=== PATIENT | male | born 2000 | race Caucasian/White ===

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

== ENCOUNTER 2021-05-25 16:05 | Emergency (ER) | payer BC, OTHER ==
[2021-05-25 16:35] LABS: Glucose,Whole Blood >600 mg/dL (75-99)
[2021-05-25 17:05] LABS: Glucose,Whole Blood >600 mg/dL (75-99)
[2021-05-25] MEDS ORDERED: SODIUM CHLORIDE 0.9% 2,000 ML IV STA (17:08)
[2021-05-25] MEDS ORDERED: ONDANSETRON 4 MG/2 ML VIAL IVP STA (17:10)
[2021-05-25 17:31] LABS: Appearance,Urine Clear (Clear); Bilirubin,Urine Negative (Negative); Blood,Urine Negative (Negative); Color,Urine Colorless; Glucose,Urine (UA) 4+ (Negative); Ketones,Urine Negative (Negative); Leukocyte Esterase,Urine Negative (Negative); Nitrite,Urine Negative (Negative); Protein,Urine Negative (Negative); Urobilinogen,Urine <2.0 mg/dL (<2.0)
[2021-05-25 17:42] LABS: ALT 12 U/L (4-49); AST 17 U/L (17-59); African American GFR (CKD) >90 (>60 ml/min/1.73 sqM); Albumin 4.1 g/dL (3.5-5.0); Alkaline Phosphatase 154 U/L (38-126); Anion Gap 9 mmol/L; Blood Urea Nitrogen 13 mg/dL (9-20); Calcium 9.5 mg/dL (8.4-10.2); Carbon Dioxide 26 mmol/L (22-30); Chloride 96 mmol/L (98-107); Non-African American GFR(CKD) >90 (>60 ml/min/1.73 sqM); Potassium 4.4 mmol/L (3.5-5.1); Sodium 131 mmol/L (137-145); Total Bilirubin 0.7 mg/dL (0.2-1.3); Total Protein 6.6 g/dL (6.3-8.2)
[2021-05-25 17:45] LABS: Basophils # (A) 0.1 k/uL (0-0.2); Basophils % (A) 1 %; Eosinophils % (A) 1 %; HCT 45.1 % (39.0-53.0); HGB 15.9 gm/dL (13.0-17.5); Lymphocytes # (A) 2.2 k/uL (1.0-4.8); Lymphocytes % (A) 27 %; MCH 32.7 pg (25.0-35.0); MCHC 35.3 g/dL (31.0-37.0); MCV 92.6 fL (80.0-100.0); Mean Platelet Volume 8.7; Monocytes # (A) 0.4 k/uL (0-1.0); Monocytes % (A) 5 %; Neutrophils # (A) 5.3 k/uL (1.3-7.7); Neutrophils % (A) 66 %; Platelet Count 247 k/uL (150-450); RBC 4.86 m/uL (4.30-5.90); RDW 12.2 % (11.5-15.5)
[2021-05-25 17:52] LABS: Glucose 684 mg/dL (74-99)
[2021-05-25] MEDS ORDERED: ACETAMINOPHEN TAB 500 MG TAB PO STA (18:38)
[2021-05-25 18:39] LABS: Glucose,Whole Blood 418 mg/dL (75-99)
[2021-05-25 19:33] LABS: Glucose,Whole Blood 404 mg/dL (75-99)
[2021-05-25] MEDS ORDERED: INSULIN REGULAR 100 UNIT/ML VIAL (IM/SQ) SQ ONE (19:34)
[2021-05-25] MEDS ORDERED: INSULIN REGULAR 100 UNIT/ML VIAL (IV) SQ ONE (20:00)
--- NOTE | 2021-05-25 21:12 | ED ---
General Adult HPI - General Chief complaint: Nausea/Vomiting/Diarrhea Stated complaint: not feeling well/dizzy/nausea Time Seen by Provider: 05/25/21 16:30 Source: patient Mode of arrival: ambulatory Limitations: no limitations - History of Present Illness Initial comments: 20-year-old male with history of type 1 diabetes presents [facility] the [facility] with complaints of nausea and elevated blood sugar, onset this morning. States additional symptom includes feeling slightly dizzy and knew that his blood sugar was elevated. Expresses concern about DKA, but states he doesn't think he is that sick. 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 Denies use of an insulin pump. Current medication regimen includes administering bolus insulin via sliding scale. Denies fever, chills, headache, chest pain, shortness of breath, vomiting and diarrhea. - Related Data Home Medications Medication Instructions Recorded Confirmed Insulin Detemir [Levemir Flextouch 30 units SQ HS 05/25/21 05/25/21 Pen] Insulin Lispro [Insulin Lispro See Protocol SQ AC-TID 05/25/21 05/25/21 Kwikpen U-100] Allergies Allergy/AdvReac Type Severity Reaction Status Date / Time No Known Allergies Allergy Verified 05/25/21 17:13 Review of Systems ROS Statement: Those systems with pertinent positive or pertinent negative responses have been documented in the HPI. ROS Other: All systems not noted in ROS Statement are negative. Past Medical History Past Medical History: Diabetes Mellitus, Hypertension Additional Past Medical History / Comment(s): type 1 DM DKI in the past History of Any Multi-Drug Resistant Organisms: None Reported Past Surgical History: Adenoidectomy, Tonsillectomy Past Anesthesia/Blood Transfusion Reactions: No Reported Reaction Past Psychological History: Anxiety, Depression Smoking Status: Vaper Past Alcohol Use History: None Reported Past Drug Use History: Marijuana - Past Family History Mother Family Medical History: Diabetes Mellitus Additional Family Medical History / Comment(s): bipolar Father Family Medical History: Diabetes Mellitus, Hypertension General Exam Limitations: no limitations General appearance: alert, in no apparent distress ENT exam: Present: normal exam, normal oropharynx, mucous membranes moist Respiratory exam: Present: normal lung sounds bilaterally. Absent: respiratory distress, wheezes, rales, rhonchi, stridor Cardiovascular Exam: Present: regular rate, normal rhythm, normal heart sounds. Absent: systolic murmur, diastolic murmur, rubs, gallop, clicks GI/Abdominal exam: Present: soft, normal bowel sounds. Absent: distended, tenderness, guarding, rebound, rigid Neurological exam: Present: alert, oriented X3, CN II-XII intact Psychiatric exam: Present: normal affect, normal mood Skin exam: Present: warm, dry, intact, normal color. Absent: rash Course Vital Signs 05/25/21 05/25/21 05/25/21 16:22 17:24 18:26 Temperature 98.5 F Pulse Rate 107 H 94 93 Respiratory 19 16 18 Rate Blood Pressure 155/94 120/94 132/96 O2 Sat by Pulse 98 98 100 Oximetry 05/25/21 05/25/21 05/25/21 19:00 20:33 21:45 Temperature 98.4 F 98 F Pulse Rate 104 H 87 87 Respiratory 17 18 16 Rate Blood Pressure 134/92 131/83 128/80 O2 Sat by Pulse 99 100 98 Oximetry 05/25/21 23:46 Temperature 97.8 F Pulse Rate 92 Respiratory 18 Rate Blood Pressure 120/70 O2 Sat by Pulse 99 Oximetry - Reevaluation(s) Reevaluation #1: 05/25/21 21:34 Repeat Accu-Chek after receiving 10 units of subcutaneous insulin is 456. Patient did eat a meal therefore additional insulin will be administered and Accu-Chek will be repeated. 05/25/21 22:08 Resting comfortably with no complaints. Updated on treatment goal and plan of care; patient is agreeable. Also discussed importance of close monitoring and follow-up care for management of chronic illness. Medical Decision Making - Medical Decision Making 20-year-old male with a history of type 1 diabetes presents to the emergency room for evaluation of nausea and hyperglycemia. Physical exam findings are negative. Pertinent lab findings include a blood glucose of 684, anion gap is 9, serum acetone is negative. Patient was hydrated and blood glucose improved to 400. Patient was then given 10 units of subcutaneous insulin with a repeat Accu-Chek of 456. Patient was eating a meal therefore was given a repeat dose of subcutaneous insulin; repeat Accu-Chek 249. Patient reports feeling improved. Discussed importance of follow-up care for management of chronic medical condition. Return parameters were discussed in detail. Patient verbalizes understanding and agrees with this plan. This case was discussed with my attending Dr. Rubio. - Lab Data Result diagrams: 05/25/21 17:17 05/25/21 17:17 Lab Results 05/25/21 05/25/21 05/25/21 Range/Units 16:25 17:03 17:17 WBC 8.0 (4.0-11.0) k/uL RBC 4.86 (4.30-5.90) m/uL Hgb 15.9 (13.0-17.5) gm/dL Hct 45.1 (39.0-53.0) % MCV 92.6 (80.0-100.0) fL MCH 32.7 (25.0-35.0) pg MCHC 35.3 (31.0-37.0) g/dL RDW 12.2 (11.5-15.5) % Plt Count 247 (150-450) k/uL MPV 8.7 Neutrophils % 66 % Lymphocytes % 27 % Monocytes % 5 % Eosinophils % 1 % Basophils % 1 % Neutrophils # 5.3 (1.3-7.7) k/uL Lymphocytes # 2.2 (1.0-4.8) k/uL Monocytes # 0.4 (0-1.0) k/uL Eosinophils # 0.0 (0-0.7) k/uL Basophils # 0.1 (0-0.2) k/uL Sodium (137-145) mmol/L Potassium (3.5-5.1) mmol/L Chloride (98-107) mmol/L Carbon Dioxide (22-30) mmol/L Anion Gap mmol/L BUN (9-20) mg/dL Creatinine (0.66-1.25) mg/dL Est GFR (CKD-EPI)AfAm (>60 ml/min/1.73 sqM) Est GFR (CKD-EPI)NonAf (>60 ml/min/1.73 sqM) Glucose (74-99) mg/dL POC Glucose (mg/dL) >600 H >600 H (75-99) mg/dL POC Glu Licensed Optician ID Hannah Maradiaga Muranda Plasma Lactic Acid Kw[place] (0.7-2.0) mmol/L Calcium (8.4-10.2) mg/dL Magnesium (1.6-2.3) mg/dL Total Bilirubin (0.2-1.3) mg/dL AST (17-59) U/L ALT (4-49) U/L Alkaline Phosphatase (38-126) U/L Total Protein (6.3-8.2) g/dL Albumin (3.5-5.0) g/dL Urine Color Urine Appearance (Clear) Urine pH (5.0-8.0) Ur Specific [place] (1.001-1.035) Urine Protein (Negative) Urine Glucose (UA) (Negative) Urine Ketones (Negative) Urine Blood (Negative) Urine Nitrite (Negative) Urine Bilirubin (Negative) Urine Urobilinogen (<2.0) mg/dL Ur Leukocyte Esterase (Negative) Acetone, Qual (Negative) 05/25/21 05/25/21 05/25/21 Range/Units 17:17 17:17 17:17 WBC (4.0-11.0) k/uL RBC (4.30-5.90) m/uL Hgb (13.0-17.5) gm/dL Hct (39.0-53.0) % MCV (80.0-100.0) fL MCH (25.0-35.0) pg MCHC (31.0-37.0) g/dL RDW (11.5-15.5) % Plt Count (150-450) k/uL MPV Neutrophils % % Lymphocytes % % Monocytes % % Eosinophils % % Basophils % % Neutrophils # (1.3-7.7) k/uL Lymphocytes # (1.0-4.8) k/uL Monocytes # (0-1.0) k/uL Eosinophils # (0-0.7) k/uL Basophils # (0-0.2) k/uL Sodium 131 L (137-145) mmol/L Potassium 4.4 (3.5-5.1) mmol/L Chloride 96 L (98-107) mmol/L Carbon Dioxide 26 (22-30) mmol/L Anion Gap 9 mmol/L BUN 13 (9-20) mg/dL Creatinine 0.35 L (0.66-1.25) mg/dL Est GFR (CKD-EPI)AfAm >90 (>60 ml/min/1.73 sqM) Est GFR (CKD-EPI)NonAf >90 (>60 ml/min/1.73 sqM) Glucose 684 H* (74-99) mg/dL POC Glucose (mg/dL) (75-99) mg/dL POC Glu Licensed Optician ID Plasma Lactic Acid Kw[place] 1.4 (0.7-2.0) mmol/L Calcium 9.5 (8.4-10.2) mg/dL Magnesium 2.0 (1.6-2.3) mg/dL Total Bilirubin 0.7 (0.2-1.3) mg/dL AST 17 (17-59) U/L ALT 12 (4-49) U/L Alkaline Phosphatase 154 H (38-126) U/L Total Protein 6.6 (6.3-8.2) g/dL Albumin 4.1 (3.5-5.0) g/dL Urine Color Colorless Urine Appearance Clear (Clear) Urine pH 7.0 (5.0-8.0) Ur Specific [place] 1.030 (1.001-1.035) Urine Protein Negative (Negative) Urine Glucose (UA) 4+ H (Negative) Urine Ketones Negative (Negative) Urine Blood Negative (Negative) Urine Nitrite Negative (Negative) Urine Bilirubin Negative (Negative) Urine Urobilinogen <2.0 (<2.0) mg/dL Ur Leukocyte Esterase Negative (Negative) Acetone, Qual Negative (Negative) 05/25/21 05/25/21 05/25/21 Range/Units 18:35 19:30 21:24 WBC (4.0-11.0) k/uL RBC (4.30-5.90) m/uL Hgb (13.0-17.5) gm/dL Hct (39.0-53.0) % MCV (80.0-100.0) fL MCH (25.0-35.0) pg MCHC (31.0-37.0) g/dL RDW (11.5-15.5) % Plt Count (150-450) k/uL MPV Neutrophils % % Lymphocytes % % Monocytes % % Eosinophils % % Basophils % % Neutrophils # (1.3-7.7) k/uL Lymphocytes # (1.0-4.8) k/uL Monocytes # (0-1.0) k/uL Eosinophils # (0-0.7) k/uL Basophils # (0-0.2) k/uL Sodium (137-145) mmol/L Potassium (3.5-5.1) mmol/L Chloride (98-107) mmol/L Carbon Dioxide (22-30) mmol/L Anion Gap mmol/L BUN (9-20) mg/dL Creatinine (0.66-1.25) mg/dL Est GFR (CKD-EPI)AfAm (>60 ml/min/1.73 sqM) Est GFR (CKD-EPI)NonAf (>60 ml/min/1.73 sqM) Glucose (74-99) mg/dL POC Glucose (mg/dL) 418 H 404 H 456 H (75-99) mg/dL POC Glu Licensed Optician Mahamed Llamasjennifer Paula [place] Muranda Plasma Lactic Acid [place] (0.7-2.0) mmol/L Calcium (8.4-10.2) mg/dL Magnesium (1.6-2.3) mg/dL Total Bilirubin (0.2-1.3) mg/dL AST (17-59) U/L ALT (4-49) U/L Alkaline Phosphatase (38-126) U/L Total Protein (6.3-8.2) g/dL Albumin (3.5-5.0) g/dL Urine Color Urine Appearance (Clear) Urine pH (5.0-8.0) Ur Specific [place] (1.001-1.035) Urine Protein (Negative) Urine Glucose (UA) (Negative) Urine Ketones (Negative) Urine Blood (Negative) Urine Nitrite (Negative) Urine Bilirubin (Negative) Urine Urobilinogen (<2.0) mg/dL Ur Leukocyte Esterase (Negative) Acetone, Qual (Negative) 05/25/21 05/25/21 Range/Units 22:51 23:23 WBC (4.0-11.0) k/uL RBC (4.30-5.90) m/uL Hgb (13.0-17.5) gm/dL Hct (39.0-53.0) % MCV (80.0-100.0) fL MCH (25.0-35.0) pg MCHC (31.0-37.0) g/dL RDW (11.5-15.5) % Plt Count (150-450) k/uL MPV Neutrophils % % Lymphocytes % % Monocytes % % Eosinophils % % Basophils % % Neutrophils # (1.3-7.7) k/uL Lymphocytes # (1.0-4.8) k/uL Monocytes # (0-1.0) k/uL Eosinophils # (0-0.7) k/uL Basophils # (0-0.2) k/uL Sodium (137-145) mmol/L Potassium (3.5-5.1) mmol/L Chloride (98-107) mmol/L Carbon Dioxide (22-30) mmol/L Anion Gap mmol/L BUN (9-20) mg/dL Creatinine (0.66-1.25) mg/dL Est GFR (CKD-EPI)AfAm (>60 ml/min/1.73 sqM) Est GFR (CKD-EPI)NonAf (>60 ml/min/1.73 sqM) Glucose (74-99) mg/dL POC Glucose (mg/dL) 360 H 249 H (75-99) mg/dL POC Glu Licensed Optician Melba Llamas Muranda Plasma Lactic Acid [place] (0.7-2.0) mmol/L Calcium (8.4-10.2) mg/dL Magnesium (1.6-2.3) mg/dL Total Bilirubin (0.2-1.3) mg/dL AST (17-59) U/L ALT (4-49) U/L Alkaline Phosphatase (38-126) U/L Total Protein (6.3-8.2) g/dL Albumin (3.5-5.0) g/dL Urine Color Urine Appearance (Clear) Urine pH (5.0-8.0) Ur Specific [place] (1.001-1.035) Urine Protein (Negative) Urine Glucose (UA) (Negative) Urine Ketones (Negative) Urine Blood (Negative) Urine Nitrite (Negative) Urine Bilirubin (Negative) Urine Urobilinogen (<2.0) mg/dL Ur Leukocyte Esterase (Negative) Acetone, Qual (Negative) Disposition Clinical Impression: Hyperglycemia due to type 1 diabetes mellitus, Type 1 diabetes mellitus, uncontrolled Disposition: HOME SELF-CARE Condition: Stable Instructions (If sedation given, give patient instructions): Diabetic Hyperglycemia (ED) Additional Instructions: Continue to monitor blood sugar carefully. Establish with primary care provider for further evaluation and treatment. Return to the emergency department with any new, worsening, or concerning symptoms. Is patient prescribed a controlled substance at d/c from ED?: No Referrals: None,Stated [Primary Care Provider] - 1-2 days [facility] [NON-STAFF] - 1-2 days Time of Disposition: 23:35
[2021-05-25 21:25] LABS: Glucose,Whole Blood 456 mg/dL (75-99)
[2021-05-25] MEDS ORDERED: INSULIN ASPART (NovoLOG) 100 UNIT/ML VIAL SQ ONE (21:28)
[2021-05-25 22:53] LABS: Glucose,Whole Blood 360 mg/dL (75-99)
[2021-05-25 23:25] LABS: Glucose,Whole Blood 249 mg/dL (75-99)
[2021-05-25 23:47] VITALS: BP 120/70; PULSE 92; RESP 18; TEMP 97.8
== END 2021-05-25 23:38 | disposition home or self-care (01) ==
LOC: EC 16:05
DX: E10.65 Type 1 diabetes mellitus with hyperglycemia (principal); I10 Essential (primary) hypertension; R11.2 Nausea with vomiting, unspecified; R19.7 Diarrhea, unspecified; R42 Dizziness and giddiness; F17.290 Nicotine dependence, other tobacco product, uncomplicated; Z79.4 Long term (current) use of insulin
CPT/HCPCS: 36415; 80053; 82009; 83605; 83735; 85025; 81003; 99284; 96374; 96361; 96372 ×2; J2405

== ENCOUNTER 2021-07-26 17:25 | Inpatient (IN) | payer BC, OTHER ==
[2021-07-26 17:55] LABS: Glucose,Whole Blood 369 mg/dL (75-99)
[2021-07-26] MEDS ORDERED: SODIUM CHLORIDE 0.9% 2,000 ML IV STA (17:55)
--- NOTE | 2021-07-26 18:01 | ED ---
General Adult HPI - General Chief complaint: Chest Pain Stated complaint: Chest pain, diabetic Time Seen by Provider: 07/26/21 17:43 Source: patient Mode of arrival: ambulatory Limitations: no limitations - History of Present Illness Initial comments: Dictation was produced using mytra[employer] dictation software. please excuse any grammatical, word or spelling errors. Chief Complaint: 20-year-old male with past medical history of insulin-dependent diabetes mellitus presents to the ER for chest pain cough congestion and shortness of breath History of Present Illness: Patient is a 20-year-old male. The last several days but having worsening cough, congestion, shortness of breath and chest pain. States his chest pain is pleuritic to the anterior chest. Patient is an insulin-dependent diabetic. Has not taken his diabetes medications for several days because he ran out. He does complain of some mild vague abdominal pain. No numbness and paresthesias. The ROS documented in this emergency department record has been reviewed and confirmed by me. Those systems with pertinent positive or negative responses have been documented in the HPI. All other systems are other negative and/or noncontributory. PHYSICAL EXAM: General Impression: Alert and oriented x3, not in acute distress, malnourished HEENT: Normocephalic atraumatic, extra-ocular movements intact, pupils equal and reactive to light bilaterally, mucous membranes moist. Cardiovascular: Heart regular rate and rhythm Chest: Able to complete full sentences, no retractions, no tachypnea Abdomen: abdomen soft, non-tender, non-distended, no organomegaly Musculoskeletal: Pulses present and equal in all extremities, no peripheral edema Motor: no focal deficits noted Neurological: CN II-XII grossly intact, no focal motor or sensory deficits noted Skin: Intact with no visualized rashes Psych: Normal affect and mood ED course: 20-year-old male presents to the emergency department for chest pain shortness of breath. Vital signs upon arrival shows heart rate of 153, temperature 90.9, worse vital signs within acceptable limits. EKG shows sinus tachycardia with a rate of 142. Laboratory evaluation obtained. CBC unremarkable. Venous blood gas pH 7.11, bicarb of 6 with a pCO2 of 20. Metabolic panel shows bicarb of 6, anion gap 29. Glucose is 391. Rest of labs unremarkable. Clinical presentation consistent with diabetic ketoacidosis. Patient started on insulin drip. Patient will be admitted to ICU. Case discussed with ICU attending, Dr. Miller who is willing to accept patients care. Patient be admitted to [facility] hospitalist group. EKG interpretation: Ventricular rate 142, sinus tachycardia,. Interval 1:30, QRS 76, QTC 424. No [place] prolongation, no QTC prolongation, no ST or T-wave changes noted. - Related Data Home Medications Medication Instructions Recorded Confirmed No Known Home Medications 07/26/21 07/26/21 Allergies Allergy/AdvReac Type Severity Reaction Status Date / Time No Known Allergies Allergy Verified 07/26/21 19:44 Review of Systems ROS Statement: Those systems with pertinent positive or pertinent negative responses have been documented in the HPI. ROS Other: All systems not noted in ROS Statement are negative. Past Medical History Past Medical History: Diabetes Mellitus, Hypertension Additional Past Medical History / Comment(s): type 1 DM DKI in the past History of Any Multi-Drug Resistant Organisms: None Reported Past Surgical History: Adenoidectomy, Tonsillectomy Past Anesthesia/Blood Transfusion Reactions: No Reported Reaction Past Psychological History: Anxiety, Depression Smoking Status: Vaper Past Alcohol Use History: None Reported Past Drug Use History: Marijuana - Past Family History Mother Family Medical History: Diabetes Mellitus Additional Family Medical History / Comment(s): bipolar Father Family Medical History: Diabetes Mellitus, Hypertension General Exam Limitations: no limitations Course Vital Signs 07/26/21 07/26/21 17:30 18:33 Temperature 99 F Pulse Rate 153 H Respiratory 24 18 Rate Blood Pressure 115/81 O2 Sat by Pulse 98 Oximetry Medical Decision Making - Lab Data Result diagrams: 07/26/21 18:30 07/26/21 18:30 Lab Results 07/26/21 07/26/21 07/26/21 Range/Units 17:53 18:30 18:30 WBC 7.5 (4.0-11.0) k/uL RBC 5.49 (4.30-5.90) m/uL Hgb 17.7 H (13.0-17.5) gm/dL Hct 52.2 (39.0-53.0) % MCV 95.1 (80.0-100.0) fL MCH 32.3 (25.0-35.0) pg MCHC 34.0 (31.0-37.0) g/dL RDW 13.5 (11.5-15.5) % Plt Count 198 (150-450) k/uL MPV 8.9 Neutrophils % 74 % Lymphocytes % 16 % Monocytes % 7 % Eosinophils % 0 % Basophils % 1 % Neutrophils # 5.5 (1.3-7.7) k/uL Lymphocytes # 1.2 (1.0-4.8) k/uL Monocytes # 0.6 (0-1.0) k/uL Eosinophils # 0.0 (0-0.7) k/uL Basophils # 0.1 (0-0.2) k/uL VBG pH (7.31-7.41) VBG pCO2 (37-51) mmHg VBG HCO3 (24-28) mmol/L Sodium 138 (137-145) mmol/L Potassium 4.0 (3.5-5.1) mmol/L Chloride 103 (98-107) mmol/L Carbon Dioxide 6 L* (22-30) mmol/L Anion Gap 29 mmol/L BUN 14 (9-20) mg/dL Creatinine 0.66 (0.66-1.25) mg/dL Est GFR (CKD-EPI)AfAm >90 (>60 ml/min/1.73 sqM) Est GFR (CKD-EPI)NonAf >90 (>60 ml/min/1.73 sqM) Glucose 391 H (74-99) mg/dL POC Glucose (mg/dL) 369 H (75-99) mg/dL POC Glu [employer]st ID [facility] Plasma Lactic Acid [place] (0.7-2.0) mmol/L Calcium 9.4 (8.4-10.2) mg/dL Phosphorus 5.3 H (2.5-4.5) mg/dL Magnesium 2.0 (1.6-2.3) mg/dL Total Bilirubin 0.5 (0.2-1.3) mg/dL AST 17 (17-59) U/L ALT 11 (4-49) U/L Alkaline Phosphatase 228 H (38-126) U/L Total Protein 7.7 (6.3-8.2) g/dL Albumin 4.8 (3.5-5.0) g/dL Urine Color Urine Appearance (Clear) Urine pH (5.0-8.0) Ur Specific [place] (1.001-1.035) Urine Protein (Negative) Urine Glucose (UA) (Negative) Urine Ketones (Negative) Urine Blood (Negative) Urine Nitrite (Negative) Urine Bilirubin (Negative) Urine Urobilinogen (<2.0) mg/dL Ur Leukocyte Esterase (Negative) Urine RBC (0-5) /hpf Urine WBC (0-5) /hpf Ur Squamous Epith Cells (0-4) /hpf Hyaline Casts (0-2) /lpf Urine Mucus (None) /hpf Acetone, Qual Negative (Negative) 07/26/21 07/26/21 07/26/21 Range/Units 18:30 18:30 20:00 WBC (4.0-11.0) k/uL RBC (4.30-5.90) m/uL Hgb (13.0-17.5) gm/dL Hct (39.0-53.0) % MCV (80.0-100.0) fL MCH (25.0-35.0) pg MCHC (31.0-37.0) g/dL RDW (11.5-15.5) % Plt Count (150-450) k/uL MPV Neutrophils % % Lymphocytes % % Monocytes % % Eosinophils % % Basophils % % Neutrophils # (1.3-7.7) k/uL Lymphocytes # (1.0-4.8) k/uL Monocytes # (0-1.0) k/uL Eosinophils # (0-0.7) k/uL Basophils # (0-0.2) k/uL VBG pH 7.11 L* (7.31-7.41) VBG pCO2 20 L (37-51) mmHg VBG HCO3 6 L* (24-28) mmol/L Sodium (137-145) mmol/L Potassium (3.5-5.1) mmol/L Chloride (98-107) mmol/L Carbon Dioxide (22-30) mmol/L Anion Gap mmol/L BUN (9-20) mg/dL Creatinine (0.66-1.25) mg/dL Est GFR (CKD-EPI)AfAm (>60 ml/min/1.73 sqM) Est GFR (CKD-EPI)NonAf (>60 ml/min/1.73 sqM) Glucose (74-99) mg/dL POC Glucose (mg/dL) (75-99) mg/dL POC Glu [employer] Analyst ID Plasma Lactic Acid [place] 1.7 (0.7-2.0) mmol/L Calcium (8.4-10.2) mg/dL Phosphorus (2.5-4.5) mg/dL Magnesium (1.6-2.3) mg/dL Total Bilirubin (0.2-1.3) mg/dL AST (17-59) U/L ALT (4-49) U/L Alkaline Phosphatase (38-126) U/L Total Protein (6.3-8.2) g/dL Albumin (3.5-5.0) g/dL Urine Color Light Yellow Urine Appearance Clear (Clear) Urine pH 5.5 (5.0-8.0) Ur Specific [place] 1.028 (1.001-1.035) Urine Protein 1+ H (Negative) Urine Glucose (UA) 4+ H (Negative) Urine Ketones 4+ H (Negative) Urine Blood Negative (Negative) Urine Nitrite Negative (Negative) Urine Bilirubin Negative (Negative) Urine Urobilinogen <2.0 (<2.0) mg/dL Ur Leukocyte Esterase Negative (Negative) Urine RBC <1 (0-5) /hpf Urine WBC 1 (0-5) /hpf Ur Squamous Epith Cells <1 (0-4) /hpf Hyaline Casts 1 (0-2) /lpf Urine Mucus Rare H (None) /hpf Acetone, Qual (Negative) Critical Care Time Critical Care Time: Yes Total Critical Care Time: 33 Disposition Clinical Impression: DKA (diabetic ketoacidosis) Disposition: ADMITTED IP TO THIS [facility] Condition: Critical Referrals: None,Stated [Primary Care Provider] - 1-2 days
[2021-07-26 19:05] LABS: Basophils # (A) 0.1 k/uL (0-0.2); Basophils % (A) 1 %; Eosinophils % (A) 0 %; HCT 52.2 % (39.0-53.0); HGB 17.7 gm/dL (13.0-17.5); Lymphocytes # (A) 1.2 k/uL (1.0-4.8); Lymphocytes % (A) 16 %; MCH 32.3 pg (25.0-35.0); MCV 95.1 fL (80.0-100.0); Mean Platelet Volume 8.9; Monocytes # (A) 0.6 k/uL (0-1.0); Monocytes % (A) 7 %; Neutrophils # (A) 5.5 k/uL (1.3-7.7); Neutrophils % (A) 74 %; Platelet Count 198 k/uL (150-450); RBC 5.49 m/uL (4.30-5.90); RDW 13.5 % (11.5-15.5); WBC 7.5 k/uL (4.0-11.0)
[2021-07-26 19:26] LABS: VBG PH 7.11 (7.31-7.41)
[2021-07-26 19:29] LABS: ALT 11 U/L (4-49); AST 17 U/L (17-59); African American GFR (CKD) >90 (>60 ml/min/1.73 sqM); Albumin 4.8 g/dL (3.5-5.0); Alkaline Phosphatase 228 U/L (38-126); Anion Gap 29 mmol/L; Blood Urea Nitrogen 14 mg/dL (9-20); Calcium 9.4 mg/dL (8.4-10.2); Chloride 103 mmol/L (98-107); Glucose 391 mg/dL (74-99); Non-African American GFR(CKD) >90 (>60 ml/min/1.73 sqM); Phosphorus 5.3 mg/dL (2.5-4.5); Sodium 138 mmol/L (137-145); Total Bilirubin 0.5 mg/dL (0.2-1.3); Total Protein 7.7 g/dL (6.3-8.2)
--- NOTE | 2021-07-26 19:32 | XR ---
EXAMINATION: XR chest 1V portable DATE AND TIME: 07/26/2021 6:19 PM CLINICAL INDICATION: pain TECHNIQUE: AP upright portable COMPARISON: 05/13/2018 FINDINGS: There is an 5 cm x 3 cm oval opacity in the left suprahilar position as seen on the prior study. This finding could represent focal pneumonia. No imaging required sooner, would recommend six-week follow -up imaging to prove complete resolution of the finding. The lungs are otherwise clear. The pleural spaces are negative. The cardiac silhouette is not enlarged. The remainder of the mediastinal silhouette is unremarkable. The skeletal structures and soft tissues are negative for acute findings. IMPRESSION: LEFT SUPRAHILAR 5 X 3 CM OVAL ABNORMALITY.
[2021-07-26 19:45] LABS: Carbon Dioxide 6 mmol/L (22-30)
[2021-07-26] MEDS ORDERED: INSULIN REGULAR BOLUS (FROM DRIP BAG) IV ONE (20:02)
[2021-07-26 20:47] LABS: Appearance,Urine Clear (Clear); Bilirubin,Urine Negative (Negative); Blood,Urine Negative (Negative); Color,Urine Light Yellow; Glucose,Urine (UA) 4+ (Negative); Hyaline Casts,Urine 1 /lpf (0-2); Leukocyte Esterase,Urine Negative (Negative); Mucus,Urine Rare /hpf; Nitrite,Urine Negative (Negative); PH, Urine 5.5 (5.0-8.0); Protein,Urine 1+ (Negative); RBC,Urine <1 /hpf (0-5); Specific Gravity,Urine 1.028 (1.001-1.035); Squamous Epithelial Cell,Urine <1 /hpf (0-4); Urobilinogen,Urine <2.0 mg/dL (<2.0); WBC,Urine 1 /hpf (0-5)
[2021-07-26 20:57] LABS: Ketones,Urine 4+ (Negative)
[2021-07-26 21:04] LABS: Glucose,Whole Blood 336 mg/dL (75-99)
[2021-07-26] MEDS ORDERED: NALOXONE 0.4 MG/ML 1 ML VIAL IV PRN (21:04)
[2021-07-26] MEDS: SODIUM CHLORIDE 0.9% 1,000 ML IV SCH (21:11)
[2021-07-26] MEDS: INSULIN REGULAR 100 UNIT in SODIUM CHLORIDE 0.9% 100 ML IV SCH (21:15)
[2021-07-26 22:26] LABS: Glucose,Whole Blood 298 mg/dL (75-99)
[2021-07-26 23:16] LABS: Glucose,Whole Blood 242 mg/dL (75-99)
[2021-07-27 00:46] LABS: Glucose,Whole Blood 180 mg/dL (75-99)
[2021-07-27 01:08] LABS: Sodium 138 mmol/L (137-145)
[2021-07-27 01:10] LABS: African American GFR (CKD) >90 (>60 ml/min/1.73 sqM); Anion Gap 18 mmol/L; Blood Urea Nitrogen 12 mg/dL (9-20); Chloride 112 mmol/L (98-107); Glucose 229 mg/dL (74-99); Non-African American GFR(CKD) >90 (>60 ml/min/1.73 sqM); Potassium 3.3 mmol/L (3.5-5.1)
[2021-07-27] MEDS ORDERED: Potassium Replacement Protocol 1 EACH MISC MISCELLANE PRN (01:16)
[2021-07-27] MEDS ORDERED: Magnesium Replacement Protocol 1 EACH MISC MISCELLANE PRN (01:16)
[2021-07-27 01:25] LABS: Carbon Dioxide 8 mmol/L (22-30)
[2021-07-27 01:29] LABS: Glucose,Whole Blood 181 mg/dL (75-99)
[2021-07-27] MEDS ORDERED: D5-0.45% NACL WITH KCL 20MEQ/L 1,000 ML IV SCH (01:30)
[2021-07-27 02:07] LABS: Glucose,Whole Blood 212 mg/dL (75-99)
[2021-07-27] MEDS: SODIUM CHLORIDE 0.9% 1,000 ML IV SCH ×2 (02:29→05:04)
[2021-07-27 03:02] LABS: Glucose,Whole Blood 175 mg/dL (75-99)
[2021-07-27] MEDS: POTASSIUM CHLORIDE ER 20 MEQ TAB.ER PO SCH ×2 (03:03→04:05)
[2021-07-27 04:17] LABS: Glucose,Whole Blood 220 mg/dL (75-99)
[2021-07-27] MEDS: INSULIN REGULAR 100 UNIT in SODIUM CHLORIDE 0.9% 100 ML IV SCH (05:02)
[2021-07-27 05:04] LABS: Glucose,Whole Blood 196 mg/dL (75-99)
[2021-07-27 05:48] LABS: African American GFR (CKD) >90 (>60 ml/min/1.73 sqM); Anion Gap 6 mmol/L; Blood Urea Nitrogen 12 mg/dL (9-20); Carbon Dioxide 16 mmol/L (22-30); Chloride 110 mmol/L (98-107); Glucose 232 mg/dL (74-99); Non-African American GFR(CKD) >90 (>60 ml/min/1.73 sqM); Potassium 3.5 mmol/L (3.5-5.1); Sodium 132 mmol/L (137-145)
[2021-07-27 06:08] LABS: Glucose,Whole Blood 196 mg/dL (75-99)
[2021-07-27 06:57] LABS: Glucose,Whole Blood 164 mg/dL (75-99)
[2021-07-27 07:55] LABS: Glucose,Whole Blood 152 mg/dL (75-99)
--- NOTE | 2021-07-27 08:08 | P.CNPUL ---
History of Present Illness Consult date: 07/27/21 Chief complaint: Hyperglycemia, COVID 19 infection History of present illness: Seen which was 20-year-old boy, diabetic for the past 3 years, obviously has type 1 diabetes mellitus, he ran out of his insulin for several weeks and the patient presented with DKA. At the time the patient also complained of some shortness of breath and a congested cough. His blood work in the emergency was consistent with DKA. The patient was apparently oriented and alert 3.. No significant distress. His blood work was considerably abnormal. His venous pH was at 7.11, his blood work showed an anion gap of 29 with a serum bicarb of 6 and a glucose of 391. The patient was given a total of 2 L in the emergency department and he was given another liter bolus and the ICU and following that the patient was started on insulin drip overnight. His condition is improved significantly. Currently he is awake and alert and he has no specific complaints. No nausea. No vomiting. No emesis. Most recent blood work shows a gap of 6 with a serum bicarb of 16 and his sodium level of 132. Normal renal function. White cell count was 7.4 with hemoglobin of 17. He is also COVID 19 positive. The chest x-ray however is not showing any acute abnormalities. His current pulse ox is in the order of 97% on room air oxygen. Note that this patient is not vaccinated for COVID 19. He started developing rest her symptoms approximately 3 days ago. Currently he is not having any respiratory distress. No fever. Chest x-ray as mentioned was essentially within normal and the patient is having normal oxygenation. His inflammatory markers have not been checked. Review of Systems Constitutional: Reports fatigue, Reports poor appetite, Reports sweats, Reports weakness Eyes: denies as per HPI, denies blurred vision, denies bulging eye, denies decreased vision, denies diplopia, denies discharge, denies dry eye, denies irritation, denies itching, denies pain, denies photophobia, denies loss of peripheral vision, denies loss of vision, denies tunnel vision/blind spots Ears: deny: decreased hearing, ear discharge, earache, tinnitus Ears, nose, mouth and throat: Reports as per HPI Breasts: absent: as per HPI, gynecomastia Cardiovascular: Reports as per HPI Respiratory: Reports congestion, Reports cough Gastrointestinal: Reports as per HPI Genitourinary: Reports as per HPI Musculoskeletal: Reports as per HPI Musculoskeletal: absent: ankle pain, ankle stiffness, ankle swelling, as per HPI, elbow pain, elbow stiffness, elbow swelling, foot pain, foot stiffness, foot swelling, hand pain, hand stiffness, hand swelling, hip pain, hip stiffness, hip swelling, knee pain, knee stiffness, knee swelling, shoulder pain, shoulder stiffness, shoulder swelling, wrist pain, wrist stiffness, wrist swelling Integumentary: Reports as per HPI Neurological: Reports as per HPI Psychiatric: Reports as per HPI Endocrine: Reports high blood sugars, Reports polydipsia, Reports polyuria Hematologic/Lymphatic: Reports as per HPI Allergic/Immunologic: Reports as per HPI Past Medical History Past Medical History: Diabetes Mellitus, Hypertension Additional Past Medical History / Comment(s): type 1 DM DKI in the past History of Any Multi-Drug Resistant Organisms: None Reported Past Surgical History: Adenoidectomy, Tonsillectomy Past Anesthesia/Blood Transfusion Reactions: No Reported Reaction Past Psychological History: Anxiety, Depression Additional Psychological History / Comment(s): havent seen a psychiatrist in 2 years no medications at this time would like to see on ebut cant afford it Smoking Status: Vaper Past Alcohol Use History: None Reported Additional Past Alcohol Use History / Comment(s): drinks with friends occasionally smokes marijuana and vaped up until 3 months ago Past Drug Use History: Marijuana - Past Family History Mother Family Medical History: Diabetes Mellitus Additional Family Medical History / Comment(s): bipolar Father Family Medical History: Diabetes Mellitus, Hypertension Medications and Allergies Home Medications Medication Instructions Recorded Confirmed Type No Known Home Medications 07/26/21 07/26/21 History Allergies Allergy/AdvReac Type Severity Reaction Status Date / Time No Known Allergies Allergy Verified 07/26/21 19:44 Physical Exam Vitals: Vital Signs Temp Pulse Resp BP Pulse Ox 07/27/21 07:00 96 18 104/67 97 07/27/21 06:00 101 H 17 95/63 98 07/27/21 05:00 98 17 95/63 98 07/27/21 04:00 98.3 F 97 18 102/66 98 07/27/21 03:00 111 H 20 102/66 97 07/27/21 02:07 98.2 F 105 H 20 102/66 93 L 07/27/21 02:02 98.2 F 104 H 19 98 07/26/21 21:16 97.5 F L 101 H 18 118/78 07/26/21 18:33 18 07/26/21 17:30 99 F 153 H 24 115/81 98 Intake and Output 07/26/21 07/27/21 07/27/21 22:59 06:59 14:59 Intake Total 6.131 816.185 150 Output Total 300 Balance 6.131 516.185 150 Intake: IV 750 150 D5-0.45% NaCl with KCl 750 150 20Meq/l 1,000 ml @ 150 mls/hr IV .Q6H40M NATE Rx# :[id number] Intake, IV Titration 6.131 66.185 Amount Insulin Regular 100 unit 6.131 66.185 In Sodium Chloride 0.9% 100 ml @ 0.1 UNITS/KG/HR 5.039 mls/hr IV .Q20H3M NATE Rx#:[id number] Output: Urine 300 Other: Voiding Method Urinal # Voids 1 Weight 49.895 kg 51 kg General Impression: Alert and oriented x3, not in acute distress, malnourished HEENT: Normocephalic atraumatic, extra-ocular movements intact, pupils equal and reactive to light bilaterally, mucous membranes moist. Cardiovascular: Heart regular rate and rhythm Chest: Able to complete full sentences, no retractions, no tachypnea Abdomen: abdomen soft, non-tender, non-distended, no organomegaly Musculoskeletal: Pulses present and equal in all extremities, no peripheral edema Motor: no focal deficits noted Neurological: CN II-XII grossly intact, no focal motor or sensory deficits noted Skin: Intact with no visualized rashes Psych: Normal affect and mood Results - Laboratory Findings CBC and BMP: 07/26/21 18:30 07/27/21 05:10 Abnormal lab findings: Abnormal Labs 07/26/21 07/26/21 07/26/21 17:53 18:30 18:30 Hgb 17.7 H VBG pH VBG pCO2 VBG HCO3 Sodium Potassium Chloride Carbon Dioxide 6 L* Creatinine Glucose 391 H POC Glucose (mg/dL) 369 H Phosphorus 5.3 H Alkaline Phosphatase 228 H Urine Protein Urine Glucose (UA) Urine Ketones Urine Mucus Coronavirus (PCR) 07/26/21 07/26/21 07/26/21 18:30 18:33 20:00 Hgb VBG pH 7.11 L* VBG pCO2 20 L VBG HCO3 6 L* Sodium Potassium Chloride Carbon Dioxide Creatinine Glucose POC Glucose (mg/dL) Phosphorus Alkaline Phosphatase Urine Protein 1+ H Urine Glucose (UA) 4+ H Urine Ketones 4+ H Urine Mucus Rare H Coronavirus (PCR) Detected A 07/26/21 07/26/21 07/26/21 21:02 22:24 23:14 Hgb VBG pH VBG pCO2 VBG HCO3 Sodium Potassium Chloride Carbon Dioxide Creatinine Glucose POC Glucose (mg/dL) 336 H 298 H 242 H Phosphorus Alkaline Phosphatase Urine Protein Urine Glucose (UA) Urine Ketones Urine Mucus Coronavirus (PCR) 07/27/21 07/27/21 07/27/21 00:16 00:45 01:26 Hgb VBG pH VBG pCO2 VBG HCO3 Sodium Potassium 3.3 L Chloride 112 H Carbon Dioxide 8 L* Creatinine 0.48 L Glucose 229 H POC Glucose (mg/dL) 180 H 181 H Phosphorus Alkaline Phosphatase Urine Protein Urine Glucose (UA) Urine Ketones Urine Mucus Coronavirus (PCR) 07/27/21 07/27/21 07/27/21 02:06 03:00 04:15 Hgb VBG pH VBG pCO2 VBG HCO3 Sodium Potassium Chloride Carbon Dioxide Creatinine Glucose POC Glucose (mg/dL) 212 H 175 H 220 H Phosphorus Alkaline Phosphatase Urine Protein Urine Glucose (UA) Urine Ketones Urine Mucus Coronavirus (PCR) 07/27/21 07/27/21 07/27/21 05:03 05:10 06:06 Hgb VBG pH VBG pCO2 VBG HCO3 Sodium 132 L Potassium Chloride 110 H Carbon Dioxide 16 L Creatinine 0.34 L Glucose 232 H POC Glucose (mg/dL) 196 H 196 H Phosphorus Alkaline Phosphatase Urine Protein Urine Glucose (UA) Urine Ketones Urine Mucus Coronavirus (PCR) 07/27/21 07/27/21 06:55 07:54 Hgb VBG pH VBG pCO2 VBG HCO3 Sodium Potassium Chloride Carbon Dioxide Creatinine Glucose POC Glucose (mg/dL) 164 H 152 H Phosphorus Alkaline Phosphatase Urine Protein Urine Glucose (UA) Urine Ketones Urine Mucus Coronavirus (PCR) - Diagnostic Findings Chest x-ray: image reviewed Assessment and Plan Plan: 1 acute COVID 19 infection. The patient developed respiratory symptoms around 3 days ago. Chest x-ray is within normal limits. Oxygenation is within normal limits. The patient seems to be some diuretic at this point in time. He is not vaccinated. Inflammatory markers are still pending 2 DKA / The patient was treated for his hyperglycemia with IV fluids, insulin drip and her blood sugars under better control. He did have a component of anion gap metabolic acidosis the time of admission which ultimately improved and his most recent anion gap is down to 6 and the serum bicarb is up to 16 3 type 1 diabetes mellitus, patient has been off his diabetic medication for at least a week 4 anion gap metabolic acidosis, recovered 5 Poor medical all of improved blood sugar control on outpatient basis Plan Patient is currently on room air oxygen. No need for any oxygen supplementation. No need for any systemic steroids. Start the patient on Lantus insulin 30 units daily along with a normal left basilar coverage and discontinue the insulin drip. Provide the patient with a carbohydrate consistent diet. Monitor electrolytes and anion gap for another set in addition to blood sugar monitoring and with the appropriate changes on the insulin. The patient does not have a glucometer at home and this is to be provided by Our case supervisor. Check inflammatory markers Multivitamin supplements Check HbA1c We'll transfer to a medical floor with the next 4-6 hours as the
[2021-07-27] MEDS ORDERED: INSULIN DETEMIR (LEVEMIR) 100 UNIT/ML SYR SQ SCH (08:30)
[2021-07-27] MEDS ORDERED: CHOLECALCIFEROL 25 MCG (1000 IU) TABLET PO SCH (09:00)
[2021-07-27] MEDS ORDERED: ASCORBIC ACID 500 MG TAB PO SCH (09:00)
[2021-07-27] MEDS ORDERED: ZINC SULFATE 220 MG CAP PO SCH (09:00)
[2021-07-27] MEDS ORDERED: ENOXAPARIN 40 MG/0.4 ML SYRINGE SQ SCH (09:00)
[2021-07-27 10:02] VITALS: RESP 18
--- NOTE | 2021-07-27 11:16 | P.HPIM ---
History of Present Illness Patient returned on-year-old male highly noncompliant with his diabetic medications came in with complaints of shortness of breath has been going on for 3 days along with some abdominal discomfort. Patient is found to have Covid 19. Patient is also found to be in a diabetic ketoacidosis. Patient was on the IV insulin with resolution of anion gap today. Patient usually is supposed to use 34 units of long-acting insulin which was resumed here patient will be given a long-acting insulin patient will be transitioned from IV insulin to subcutaneous insulin and patient will be switched to normal saline patient is bit hyponatrem ic probably secondary to dehydration as well as hyperglycemia. Patient is not vaccinated for Covid 19. She and had a severe anion gap and [place] acidosis with bicarbonate of 6. Presently still has low bicarb secondary to hyperchloremia. REVIEW OF SYSTEMS: CONSTITUTIONAL: No fever, no malaise, no fatigue. HEENT: No recent visual problems or hearing problems. Denied any sore throat. CARDIOVASCULAR: No chest pain, orthopnea, PND, no palpitations, no syncope. PULMONARY: no hemoptysis. GASTROINTESTINAL: No diarrhea, no nausea, no vomiting, no abdominal pain. NEUROLOGICAL: No headaches, no weakness, no numbness. HEMATOLOGICAL: Denies any bleeding or petechiae. GENITOURINARY: Denies any burning micturition, frequency, or urgency. MUSCULOSKELETAL/RHEUMATOLOGICAL: Denies any joint pain, swelling, or any muscle pain. ENDOCRINE: Denies any polyuria or polydipsia. The rest of the 14-point review of systems is negative. PHYSICAL EXAMINATION: GENERAL: The patient is alert and oriented x3, not in any acute distress. Well developed, well nourished. HEENT: Pupils are round and equally reacting to light. EOMI. No scleral icterus. No conjunctival pallor. Normocephalic, atraumatic. No pharyngeal erythema. No thyromegaly. CARDIOVASCULAR: S1 and S2 present. No murmurs, rubs, or gallops. PULMONARY: Chest is clear to auscultation, no wheezing or crackles. ABDOMEN: Soft, nontender, nondistended, normoactive bowel sounds. No palpable organomegaly. MUSCULOSKELETAL: No joint swelling or deformity. EXTREMITIES: No cyanosis, clubbing, or pedal edema. NEUROLOGICAL: Gross neurological examination did not reveal any focal deficits. SKIN: No rashes. Assessment and plan After diverticular acidosis: Anion gap resolved patient will be transitioned to subcutaneous insulin patient will be discharged later today. -Covid 19 infection without any significant hypoxia patient will not need any Decadron will have to check if he'll qualify for hernia medical antibody infusion is so infusion will be done before his discharge are patient will be given prescription for that infusion -Type diabetes mellitus highly noncompliant with medications extensive counseling was provided patient will be referred to chief enterprise architect patient will be given prescriptions for his insulin as well as supplies -Hyponatremia both hypovolemic and and also secondary to hyperglycemia improved now. Patient will be discharged today with the above-mentioned plan Past Medical History Past Medical History: Diabetes Mellitus, Hypertension Additional Past Medical History / Comment(s): type 1 DM DKI in the past History of Any Multi-Drug Resistant Organisms: None Reported Past Surgical History: Adenoidectomy, Tonsillectomy Past Anesthesia/Blood Transfusion Reactions: No Reported Reaction Past Psychological History: Anxiety, Depression Additional Psychological History / Comment(s): havent seen a psychiatrist in 2 years no medications at this time would like to see on ebut cant afford it Smoking Status: Vaper Past Alcohol Use History: None Reported Additional Past Alcohol Use History / Comment(s): drinks with friends occ asionally smokes marijuana and vaped up until 3 months ago Past Drug Use History: Marijuana - Past Family History Mother Family Medical History: Diabetes Mellitus Additional Family Medical History / Comment(s): bipolar Father Family Medical History: Diabetes Mellitus, Hypertension Medications and Allergies Home Medications Medication Instructions Recorded Confirmed Type Ascorbic Acid [Vitamin C] 1,000 mg PO DAILY #30 tab 07/27/21 Rx Cholecalciferol [Vitamin D3 (25 25 mcg PO DAILY #30 tablet 07/27/21 Rx Mcg = 1000 Iu)] Insulin Aspart [NovoLOG] 0 units SQ ACHS #5 each 07/27/21 Rx Insulin Glargine,Hum.rec.anlog 34 unit SQ DAILY #5 each 07/27/21 Rx [Lantus Solostar Pen] Zinc Sulfate [Orazinc] 220 mg PO DAILY #30 cap 07/27/21 Rx Allergies Allergy/AdvReac Type Severity Reaction Status Date / Time No Known Allergies Allergy Verified 07/26/21 19:44 Physical Exam Vitals: Vital Signs Temp Pulse Resp BP Pulse Ox 07/27/21 10:00 94 18 107/69 98 07/27/21 09:00 117 H 14 95/69 97 07/27/21 08:00 98.1 F 94 19 98/64 97 07/27/21 07:00 96 18 104/67 97 07/27/21 06:00 101 H 17 95/63 98 07/27/21 05:00 98 17 95/63 98 07/27/21 04:00 98.3 F 97 18 102/66 98 07/27/21 03:00 111 H 20 102/66 97 07/27/21 02:07 98.2 F 105 H 20 102/66 93 L 07/27/21 02:02 98.2 F 104 H 19 98 07/26/21 21:16 97.5 F L 101 H 18 118/78 07/26/21 18:33 18 07/26/21 17:30 99 F 153 H 24 115/81 98 Intake and Output 07/26/21 07/27/21 07/27/21 22:59 06:59 14:59 Intake Total 6.131 816.185 586.699 Output Total 300 Balance 6.131 516.185 586.699 Intake: IV 750 300 D5-0.45% NaCl with KCl 750 300 20Meq/l 1,000 ml @ 150 mls/hr IV .Q6H40M NATE Rx# :[id number] Intake, IV Titration 6.131 66.185 46.699 Amount Insulin Regular 100 unit 6.131 66.185 46.699 In Sodium Chloride 0.9% 100 ml @ 0.1 UNITS/KG/HR 5.039 mls/hr IV .Q20H3M NATE Rx#:[id number] Oral 240 Output: Urine 300 Other: Voiding Method Urinal Toilet # Voids 1 1 Weight 49.895 kg 51 kg Results CBC & Chem 7: 07/26/21 18:30 07/27/21 05:10 Labs: Abnormal Lab Results - Last 24 Hours (Table) 07/26/21 07/26/21 07/26/21 Range/Units 17:53 18:30 18:30 Hgb 17.7 H (13.0-17.5) gm/dL VBG pH (7.31-7.41) VBG pCO2 (37-51) mmHg VBG HCO3 (24-28) mmol/L Sodium (137-145) mmol/L Potassium (3.5-5.1) mmol/L Chloride (98-107) mmol/L Carbon Dioxide 6 L* (22-30) mmol/L Creatinine (0.66-1.25) mg/dL Glucose 391 H (74-99) mg/dL POC Glucose (mg/dL) 369 H (75-99) mg/dL Phosphorus 5.3 H (2.5-4.5) mg/dL Alkaline Phosphatase 228 H (38-126) U/L Urine Protein (Negative) Urine Glucose (UA) (Negative) Urine Ketones (Negative) Urine Mucus (None) /hpf Coronavirus (PCR) (Not Detectd) 07/26/21 07/26/21 07/26/21 Range/Units 18:30 18:33 20:00 Hgb (13.0-17.5) gm/dL VBG pH 7.11 L* (7.31-7.41) VBG pCO2 20 L (37-51) mmHg VBG HCO3 6 L* (24-28) mmol/L Sodium (137-145) mmol/L Potassium (3.5-5.1) mmol/L Chloride (98-107) mmol/L Carbon Dioxide (22-30) mmol/L Creatinine (0.66-1.25) mg/dL Glucose (74-99) mg/dL POC Glucose (mg/dL) (75-99) mg/dL Phosphorus (2.5-4.5) mg/dL Alkaline Phosphatase (38-126) U/L Urine Protein 1+ H (Negative) Urine Glucose (UA) 4+ H (Negative) Urine Ketones 4+ H (Negative) Urine Mucus Rare H (None) /hpf Coronavirus (PCR) Detected A (Not Detectd) 07/26/21 07/26/21 07/26/21 Range/Units 21:02 22:24 23:14 Hgb (13.0-17.5) gm/dL VBG pH (7.31-7.41) VBG pCO2 (37-51) mmHg VBG HCO3 (24-28) mmol/L Sodium (137-145) mmol/L Potassium (3.5-5.1) mmol/L Chloride (98-107) mmol/L Carbon Dioxide (22-30) mmol/L Creatinine (0.66-1.25) mg/dL Glucose (74-99) mg/dL POC Glucose (mg/dL) 336 H 298 H 242 H (75-99) mg/dL Phosphorus (2.5-4.5) mg/dL Alkaline Phosphatase (38-126) U/L Urine Protein (Negative) Urine Glucose (UA) (Negative) Urine Ketones (Negative) Urine Mucus (None) /hpf Coronavirus (PCR) (Not Detectd) 07/27/21 07/27/21 07/27/21 Range/Units 00:16 00:45 01:26 Hgb (13.0-17.5) gm/dL VBG pH (7.31-7.41) VBG pCO2 (37-51) mmHg VBG HCO3 (24-28) mmol/L Sodium (137-145) mmol/L Potassium 3.3 L (3.5-5.1) mmol/L Chloride 112 H (98-107) mmol/L Carbon Dioxide 8 L* (22-30) mmol/L Creatinine 0.48 L (0.66-1.25) mg/dL Glucose 229 H (74-99) mg/dL POC Glucose (mg/dL) 180 H 181 H (75-99) mg/dL Phosphorus (2.5-4.5) mg/dL Alkaline Phosphatase (38-126) U/L Urine Protein (Negative) Urine Glucose (UA) (Negative) Urine Ketones (Negative) Urine Mucus (None) /hpf Coronavirus (PCR) (Not Detectd) 07/27/21 07/27/21 07/27/21 Range/Units 02:06 03:00 04:15 Hgb (13.0-17.5) gm/dL VBG pH (7.31-7.41) VBG pCO2 (37-51) mmHg VBG HCO3 (24-28) mmol/L Sodium (137-145) mmol/L Potassium (3.5-5.1) mmol/L Chloride (98-107) mmol/L Carbon Dioxide (22-30) mmol/L Creatinine (0.66-1.25) mg/dL Glucose (74-99) mg/dL POC Glucose (mg/dL) 212 H 175 H 220 H (75-99) mg/dL Phosphorus (2.5-4.5) mg/dL Alkaline Phosphatase (38-126) U/L Urine Protein (Negative) Urine Glucose (UA) (Negative) Urine Ketones (Negative) Urine Mucus (None) /hpf Coronavirus (PCR) (Not Detectd) 07/27/21 07/27/21 07/27/21 Range/Units 05:03 05:10 06:06 Hgb (13.0-17.5) gm/dL VBG pH (7.31-7.41) VBG pCO2 (37-51) mmHg VBG HCO3 (24-28) mmol/L Sodium 132 L (137-145) mmol/L Potassium (3.5-5.1) mmol/L Chloride 110 H (98-107) mmol/L Carbon Dioxide 16 L (22-30) mmol/L Creatinine 0.34 L (0.66-1.25) mg/dL Glucose 232 H (74-99) mg/dL POC Glucose (mg/dL) 196 H 196 H (75-99) mg/dL Phosphorus (2.5-4.5) mg/dL Alkaline Phosphatase (38-126) U/L Urine Protein (Negative) Urine Glucose (UA) (Negative) Urine Ketones (Negative) Urine Mucus (None) /hpf Coronavirus (PCR) (Not Detectd) 07/27/21 07/27/21 Range/Units 06:55 07:54 Hgb (13.0-17.5) gm/dL VBG pH (7.31-7.41) VBG pCO2 (37-51) mmHg VBG HCO3 (24-28) mmol/L Sodium (137-145) mmol/L Potassium (3.5-5.1) mmol/L Chloride (98-107) mmol/L Carbon Dioxide (22-30) mmol/L Creatinine (0.66-1.25) mg/dL Glucose (74-99) mg/dL POC Glucose (mg/dL) 164 H 152 H (75-99) mg/dL Phosphorus (2.5-4.5) mg/dL Alkaline Phosphatase (38-126) U/L Urine Protein (Negative) Urine Glucose (UA) (Negative) Urine Ketones (Negative) Urine Mucus (None) /hpf Coronavirus (PCR) (Not Detectd) Thrombosis Risk Factor Assmnt - Choose All That Apply Any of the Below Risk Factors Present?: No Other Risk Factors: No Other congenital or acquired thrombophilia - If yes, enter type in comment: No Thrombosis Risk Factor Assessment Level: Very Low Risk
--- NOTE | 2021-07-27 11:16 | P.DS ---
Providers Date of admission: 07/26/21 21:04 Attending physician: Iona Pickering Consults: 07/26/21 21:04 Consult Physician Stat Consulting Provider: Joey Miller Consult Reason/Comments: icu patient Do you want consulting provider notified?: Yes Primary care physician: Stated None Hospital Course: Refer to my HPI for further details Patient Condition at Discharge: Critical Plan - Discharge Summary Discharge Rx Participant: Yes New Discharge Prescriptions: New Insulin Glargine,Hum.rec.anlog [Lantus Solostar Pen] 34 unit SQ DAILY #5 each Zinc Sulfate [Orazinc] 220 mg PO DAILY #30 cap Ascorbic Acid [Vitamin C] 1,000 mg PO DAILY #30 tab Insulin Aspart [NovoLOG] 0 units SQ ACHS #5 each Cholecalciferol [Vitamin D3 (25 Mcg = 1000 Iu)] 25 mcg PO DAILY #30 tablet Discharge Medication List Ascorbic Acid [Vitamin C] 1,000 mg PO DAILY #30 tab 07/27/21 [Rx] Cholecalciferol [Vitamin D3 (25 Mcg = 1000 Iu)] 25 mcg PO DAILY #30 tablet 07/27/21 [Rx] Insulin Aspart [NovoLOG] 0 units SQ ACHS #5 each 07/27/21 [Rx] Insulin Glargine,Hum.rec.anlog [Lantus Solostar Pen] 34 unit SQ DAILY #5 each 07/27/21 [Rx] Zinc Sulfate [Orazinc] 220 mg PO DAILY #30 cap 07/27/21 [Rx] Follow up Appointment(s)/Referral(s): Pj Dolan MD [REFERRING] - 1 Week (New physician to help manage you diabeties. ) [facility] - (Contact as soon as possible to set up your outpatient education.) America English MD [STAFF PHYSICIAN] - 1 Week Miguel Henderson [STAFF PHYSICIAN] - 1-2 Days (New Primary Care Appointment) Patient Instructions/Handouts: Diabetic Ketoacidosis (DC) Activity/Diet/Wound Care/Special Instructions: Glucometer ordered from Nadia at [facility] and they can be reached at [phone]. Discharge/Stand Alone Forms: [employer]
[2021-07-27 11:19] LABS: African American GFR (CKD) >90 (>60 ml/min/1.73 sqM); Anion Gap 7 mmol/L; Blood Urea Nitrogen 12 mg/dL (9-20); C Reactive Protein <0.5 mg/dL (<1.0); Calcium 8.1 mg/dL (8.4-10.2); Carbon Dioxide 16 mmol/L (22-30); Chloride 108 mmol/L (98-107); Glucose 196 mg/dL (74-99); Non-African American GFR(CKD) >90 (>60 ml/min/1.73 sqM); Sodium 131 mmol/L (137-145)
[2021-07-27 11:21] LABS: LDH 689 U/L (313-618); Potassium 3.6 mmol/L (3.5-5.1)
[2021-07-27] MEDS ORDERED: INSULIN ASPART (NovoLOG) 100 UNIT/ML VIAL SQ SCH (12:00)
[2021-07-27 12:08] VITALS: BP 105/68; PULSE 90; TEMP 98
[2021-07-27 12:11] LABS: Glucose,Whole Blood 261 mg/dL (75-99)
[2021-07-27 13:40] VITALS: BMI 15.7
[2021-07-28] MEDS ORDERED: INSULIN DETEMIR (LEVEMIR) 100 UNIT/ML SYR SQ SCH (07:00)
== END 2021-07-27 15:45 | disposition home or self-care (01) | DRG 637 ==
LOC: EC 17:25 → 2SICU 21:04
PROVIDERS: ADMIT Hospitalist; ATTEND Hospitalist
DX: E10.10 Type 1 diabetes mellitus with ketoacidosis without coma (principal); U07.1 COVID-19; E87.1 Hypo-osmolality and hyponatremia; E86.0 Dehydration; E86.1 Hypovolemia; E87.8 Other disorders of electrolyte and fluid balance, not elsewhere classified; F32.A Depression, unspecified; F41.9 Anxiety disorder, unspecified; I10 Essential (primary) hypertension; Z79.4 Long term (current) use of insulin; Z82.49 Family history of ischemic heart disease and other diseases of the circulatory system; Z83.3 Family history of diabetes mellitus; Z91.14 Patient's other noncompliance with medication regimen; T38.3X6A Underdosing of insulin and oral hypoglycemic [antidiabetic] drugs, initial encounter; F12.90 Cannabis use, unspecified, uncomplicated
CPT/HCPCS: 36415; 71045; 80048; 80051; 80053; 81001; 82009; 82565; 82803; 82947; 83605; 83615; 83735; 84100; 84520; 85025; 85379; 86140; 87635; 93005; 96361; 96365; 96366; 99291

== ENCOUNTER 2022-05-16 13:01 | Inpatient (IN) | payer BC, MEDICAID, OTHER ==
--- NOTE | 2022-05-16 13:34 | ED ---
Psych HPI - General Chief Complaint: Psychiatric Symptoms Stated Complaint: Petition Time Seen by Provider: 05/16/22 13:15 Source: patient, RN notes reviewed Mode of arrival: ambulatory - History of Present Illness Initial Comments: 21-year-old male with a history of depression who was brought in by police under petition he states he's been feeling very depressed is life is falling apart. He fell at taking pills yesterday but was apparently stopped by a family member. Brought in today for evaluation and treatment and patient denies any alcohol or any other recent drugs other than using marijuana. No fevers chills nausea vomiting sweats or other symptoms. MD Complaint: suicidal ideation, feels depressed - Related Data Home Medications Medication Instructions Recorded Confirmed No Known Home Medications 05/16/22 05/16/22 Allergies Allergy/AdvReac Type Severity Reaction Status Date / Time No Known Allergies Allergy Verified 05/16/22 13:58 Review of Systems ROS Statement: Those systems with pertinent positive or pertinent negative responses have been documented in the HPI. ROS Other: All systems not noted in ROS Statement are negative. Past Medical History Past Medical History: Diabetes Mellitus, Hypertension Additional Past Medical History / Comment(s): type 1 DM DKI in the past History of Any Multi-Drug Resistant Organisms: None Reported Past Surgical History: Adenoidectomy, Tonsillectomy Past Anesthesia/Blood Transfusion Reactions: No Reported Reaction Past Psychological History: Anxiety, Depression Smoking Status: Vaper Past Alcohol Use History: None Reported Past Drug Use History: Marijuana - Past Family History Mother Family Medical History: Diabetes Mellitus Additional Family Medical History / Comment(s): bipolar Father Family Medical History: Diabetes Mellitus, Hypertension General Exam - General Exam Comments Initial Comments: This is a well developed asthenic female who is awake alert oriented 4 Limitations: no limitations General appearance: alert, in no apparent distress Head exam: Present: atraumatic, normocephalic, normal inspection Eye exam: Present: normal appearance, PERRL, EOMI. Absent: scleral icterus, conjunctival injection, periorbital swelling ENT exam: Present: normal exam, mucous membranes moist Neck exam: Present: normal inspection. Absent: tenderness, meningismus, lymphadenopathy Respiratory exam: Present: normal lung sounds bilaterally. Absent: respiratory distress, wheezes, rales, rhonchi, stridor Cardiovascular Exam: Present: regular rate, normal rhythm, normal heart sounds. Absent: systolic murmur, diastolic murmur, rubs, gallop, clicks GI/Abdominal exam: Present: soft, normal bowel sounds. Absent: distended, tenderness, guarding, rebound, rigid Extremities exam: Present: normal inspection, full ROM, normal capillary refill. Absent: tenderness, pedal edema, joint swelling, calf tenderness Back exam: Present: normal inspection Neurological exam: Present: alert, oriented X3, CN II-XII intact Psychiatric exam: Present: depressed, flat affect, suicidal ideation Skin exam: Present: warm, dry, intact, normal color. Absent: rash Course Vital Signs 05/16/22 05/16/22 13:10 16:26 Temperature 98.3 F 97.8 F Pulse Rate 98 Pulse Rate [ 84 Pulse Oximetery ] Respiratory 20 18 Rate Blood Pressure 116/79 Blood Pressure 113/86 [Right Arm] O2 Sat by Pulse 99 97 Oximetry - Reevaluation(s) Reevaluation #1: 05/16/22 20:38 I did review the petition and discussed the case with the police officers that accompanied the patient. Medical Decision Making - Medical Decision Making The patient was evaluated by the psychiatric service and admitted for inpatient evaluation and treatment. - Lab Data Lab Results 05/16/22 05/16/22 05/16/22 Range/Units 13:34 13:50 15:03 POC Glucose (mg/dL) 311 H (70-110) mg/dL POC Glu Web Content Coordinator ID Kimmy Quiles Urine Opiates Screen Not Detected (NotDetected) Ur Oxycodone Screen Not Detected (NotDetected) Urine Methadone Screen Not Detected (NotDetected) Ur Propoxyphene Screen Not Detected (NotDetected) Ur Barbiturates Screen Not Detected (NotDetected) U Tricyclic Antidepress Not Detected (NotDetected) Ur Phencyclidine Scrn Not Detected (NotDetected) Ur Amphetamines Screen Not Detected (NotDetected) U Methamphetamines Scrn Not Detected (NotDetected) U Benzodiazepines Scrn Not Detected (NotDetected) Urine Cocaine Screen Not Detected (NotDetected) U Marijuana (THC) Screen Detected H (NotDetected) Coronavirus (PCR) Not Detected (Not Detectd) Disposition Clinical Impression: Depression, Suicidal ideation Disposition: TRANSFER TO PSYCH HOSP/UNIT Condition: Stable Decision Date: 05/16/22 Decision Time: 14:00
[2022-05-16 13:52] LABS: Glucose,Whole Blood 311 mg/dL (70-110)
[2022-05-16 14:43] LABS: Amphetamine Screen,Urine Not Detected (NotDetected); Barbiturate Screen,Urine Not Detected (NotDetected); Benzodiazepines Screen,Urine Not Detected (NotDetected); Cocaine Screen,Urine Not Detected (NotDetected); Methadone Screen, Urine Not Detected (NotDetected); Opiate Screen,Urine Not Detected (NotDetected); Oxycodone Screen, Urine Not Detected (NotDetected); Phencyclidine Screen,Urine Not Detected (NotDetected); Tricyclic Antidepressant,Urine Not Detected (NotDetected); Urn Cannabinoid Scrn Detected (NotDetected)
[2022-05-16] MEDS ORDERED: OLANZapine 10 MG VIAL IM PRN (16:27)
[2022-05-16] MEDS ORDERED: MAGNESIUM HYDROXIDE 2,400 MG/10 ML CUP PO PRN (16:27)
[2022-05-16] MEDS ORDERED: OLANZapine 5 MG TAB PO PRN (16:27)
[2022-05-16] MEDS ORDERED: hydrOXYzine HCL 50 MG/ML 1 ML VIAL IM PRN (16:27)
[2022-05-16] MEDS ORDERED: ACETAMINOPHEN TAB 325 MG TAB PO PRN (16:27)
[2022-05-16] MEDS ORDERED: MAG HYDROX/AL HYDROX/SIMETH 30 ML CUP PO PRN (16:27)
[2022-05-16] MEDS: NICOTINE 14MG/24HR PATCH TRANSDERM SCH (17:47)
[2022-05-16 18:01] LABS: Glucose,Whole Blood 235 mg/dL (70-110)
[2022-05-16] MEDS ORDERED: DEXTROSE 50% SYRINGE 50 ML IVP PRN ×2 (18:05)
[2022-05-16 20:07] LABS: Glucose,Whole Blood 264 mg/dL (70-110)
[2022-05-16] MEDS: INSULIN DETEMIR (LEVEMIR) 100 UNIT/ML SYR SQ SCH (20:09)
[2022-05-16] MEDS: INSULIN ASPART (NovoLOG) 100 UNIT/ML VIAL SQ SCH (20:11)
[2022-05-17 07:45] LABS: Glucose,Whole Blood 77 mg/dL (70-110)
[2022-05-17] MEDS: INSULIN ASPART (NovoLOG) 100 UNIT/ML VIAL SQ SCH ×7 (08:41→20:01)
[2022-05-17] MEDS: NICOTINE 14MG/24HR PATCH TRANSDERM SCH (08:42)
[2022-05-17] MEDS ORDERED: FLUoxetine HCL 20 MG CAP PO STA (10:22)
[2022-05-17 10:25] LABS: Basophils # (A) 0.1 k/uL (0-0.2); Basophils % (A) 1 %; Eosinophils # (A) 0.1 k/uL (0-0.7); Eosinophils % (A) 1 %; HCT 49.3 % (39.0-53.0); Lymphocytes # (A) 2.5 k/uL (1.0-4.8); Lymphocytes % (A) 31 %; MCH 29.6 pg (25.0-35.0); MCHC 32.4 g/dL (31.0-37.0); MCV 91.2 fL (80.0-100.0); Mean Platelet Volume 9.1; Monocytes # (A) 0.4 k/uL (0-1.0); Monocytes % (A) 6 %; Neutrophils # (A) 4.8 k/uL (1.3-7.7); Neutrophils % (A) 60 %; Platelet Count 211 k/uL (150-450); RBC 5.41 m/uL (4.30-5.90); RDW 11.8 % (11.5-15.5)
[2022-05-17 10:38] LABS: ALT 11 U/L (4-49); AST 17 U/L (17-59); African American GFR (CKD) >90 (>60 ml/min/1.73 sqM); Alkaline Phosphatase 106 U/L (38-126); Anion Gap 17 mmol/L; Bilirubin,Unconjugated 0.7 mg/dL (0.0-1.1); Blood Urea Nitrogen 13 mg/dL (9-20); Calcium 9.5 mg/dL (8.4-10.2); Carbon Dioxide 23 mmol/L (22-30); Chloride 99 mmol/L (98-107); Glucose 193 mg/dL (74-99); Non-African American GFR(CKD) >90 (>60 ml/min/1.73 sqM); Potassium 3.7 mmol/L (3.5-5.1); Sodium 139 mmol/L (137-145); Total Bilirubin 0.7 mg/dL (0.2-1.3); Total Protein 7.4 g/dL (6.3-8.2)
--- NOTE | 2022-05-17 11:15 | P.HP ---
Psychiatric H&P - . H&P Date: 05/17/22 History & Physical: Allergies Allergy/AdvReac Type Severity Reaction Status Date / Time No Known Allergies Allergy Verified 05/16/22 13:58 Vital Signs Temp 97.7 F 05/17/22 06:53 Pulse 112 H 05/17/22 06:53 Resp 18 05/17/22 06:53 BP 120/73 05/17/22 06:53 Pulse Ox 99 05/17/22 06:53 FiO2 Intake & Output 05/16/22 05/17/22 05/17/22 18:59 06:59 18:59 Weight 47.8 kg Laboratory Last Values WBC 8.0 k/uL (4.0-11.0) 05/17/22 09:36 RBC 5.41 m/uL (4.30-5.90) 05/17/22 09:36 Hgb 16.0 gm/dL (13.0-17.5) 05/17/22 09:36 Hct 49.3 % (39.0-53.0) 05/17/22 09:36 MCV 91.2 fL (80.0-100.0) 05/17/22 09:36 MCH 29.6 pg (25.0-35.0) 05/17/22 09:36 MCHC 32.4 g/dL (31.0-37.0) 05/17/22 09:36 RDW 11.8 % (11.5-15.5) 05/17/22 09:36 Plt Count 211 k/uL (150-450) 05/17/22 09:36 MPV 9.1 05/17/22 09:36 Neutrophils % 60 % 05/17/22 09:36 Lymphocytes % 31 % 05/17/22 09:36 Monocytes % 6 % 05/17/22 09:36 Eosinophils % 1 % 05/17/22 09:36 Basophils % 1 % 05/17/22 09:36 Neutrophils # 4.8 k/uL (1.3-7.7) 05/17/22 09:36 Lymphocytes # 2.5 k/uL (1.0-4.8) 05/17/22 09:36 Monocytes # 0.4 k/uL (0-1.0) 05/17/22 09:36 Eosinophils # 0.1 k/uL (0-0.7) 05/17/22 09:36 Basophils # 0.1 k/uL (0-0.2) 05/17/22 09:36 Sodium 139 mmol/L (137-145) 05/17/22 09:36 Potassium 3.7 mmol/L (3.5-5.1) 05/17/22 09:36 Chloride 99 mmol/L (98-107) 05/17/22 09:36 Carbon Dioxide 23 mmol/L (22-30) 05/17/22 09:36 Anion Gap 17 mmol/L 05/17/22 09:36 BUN 13 mg/dL (9-20) 05/17/22 09:36 Creatinine 0.56 mg/dL (0.66-1.25) L 05/17/22 09:36 Est GFR (CKD-EPI)AfAm >90 (>60 ml/min/1.73 sqM) 05/17/22 09:36 Est GFR (CKD-EPI)NonAf >90 (>60 ml/min/1.73 sqM) 05/17/22 09:36 Glucose 193 mg/dL (74-99) H 05/17/22 09:36 POC Glucose (mg/dL) 77 mg/dL (70-110) 05/17/22 07:42 POC Glu [place] Inspector ID Crystal Gunter 05/17/22 07:42 Calcium 9.5 mg/dL (8.4-10.2) 05/17/22 09:36 Total Bilirubin 0.7 mg/dL (0.2-1.3) 05/17/22 09:36 Conjugated Bilirubin 0.0 mg/dL (0.0-0.3) 05/17/22 09:36 Unconjugated Bilirubin 0.7 mg/dL (0.0-1.1) 05/17/22 09:36 Delta Bilirubin 0.0 mg/dL (0.0-0.2) 05/17/22 09:36 AST 17 U/L (17-59) 05/17/22 09:36 ALT 11 U/L (4-49) 05/17/22 09:36 Alkaline Phosphatase 106 U/L (38-126) 05/17/22 09:36 Total Protein 7.4 g/dL (6.3-8.2) 05/17/22 09:36 Albumin 5.0 g/dL (3.5-5.0) 05/17/22 09:36 TSH 0.581 mIU/L (0.465-4.680) 05/17/22 09:36 Urine Opiates Screen Not Detected (NotDetected) 05/16/22 13:34 Ur Oxycodone Screen Not Detected (NotDetected) 05/16/22 13:34 Urine Methadone Screen Not Detected (NotDetected) 05/16/22 13:34 Ur Propoxyphene Screen Not Detected (NotDetected) 05/16/22 13:34 Ur Barbiturates Screen Not Detected (NotDetected) 05/16/22 13:34 U Tricyclic Antidepress Not Detected (NotDetected) 05/16/22 13:34 Ur Phencyclidine Scrn Not Detected (NotDetected) 05/16/22 13:34 Ur Amphetamines Screen Not Detected (NotDetected) 05/16/22 13:34 U Methamphetamines Scrn Not Detected (NotDetected) 05/16/22 13:34 U Benzodiazepines Scrn Not Detected (NotDetected) 05/16/22 13:34 Urine Cocaine Screen Not Detected (NotDetected) 05/16/22 13:34 U Marijuana (THC) Screen Detected (NotDetected) H 05/16/22 13:34 Coronavirus (PCR) Not Detected (Not Detectd) 05/16/22 15:03 05/17/22 11:14 IDENTIFYING DATA: Patient is a single, unemployed, 21-year-old male with significant history of depression who presents to the hospital for worsening depression and suicidal ideation with attempt by overdose. HPI: Patient presented to the hospital on 05/16/2022, brought in by police under petition after the patient made threats to take a bottle of pills to kill himself. Upon evaluation by the EPS nurse, the patient was noted to be very tearful and depressed. The patient was subsequently transferred to the psychiatric unit and signed himself voluntarily into the unit. The patient reports significant stressors in his life. He states that he is mother at the beginning of this year after suffering from numerous medical problems. He has been in custody of his 2 brothers since the passing of his mother and was most recently informed that he has lost custody of them. He also reports that due to financial stressors, he is getting evicted. He states that he has been increasingly depressed over the past 9 months and has been contemplating suicide since the beginning of this year. In regards to depressive symptoms, the patient does endorse decreased hygiene and grooming, decreased appetite, anhedonia, poor sleep, low energy, excessive guilt, hopelessness, helplessness, as well as suicidal ideation. He does report a previous attempt at suicide when he was 17 years of age by cutting his wrist. He is otherwise not reporting any other mood symptoms and denies any significant history of bipolar disorder. He reports no psychotic symptoms. He denies any auditory or visual hallucinations. He denies any paranoia or other delusions. The patient is a type I diabetic however states that he has not been in adherent with any of his insulin regimen over the past 3 months. He states that he has had DKA in the past. PAST PSYCHIATRIC HISTORY: Patient states that he has been previously diagnosed depression and anxiety. The patient recalls bankruptcy prescribed Remeron and Zoloft. He does report one psychiatric admission at [facility] 4 years ago after attempting suicide by cutting his wrist. Patient denies any psychiatric outpatient follow-up. PMH: Past Medical History: Diabetes Mellitus, Hypertension Additional Past Medical History / Comment(s): type 1 DM DKI in the past History of Any Multi-Drug Resistant Organisms: None Reported Past Surgical History: Adenoidectomy, Tonsillectomy Past Anesthesia/Blood Transfusion Reactions: No Reported Reaction Past Psychological History: Anxiety, Depression Smoking Status: Vaper Past Alcohol Use History: None Reported Past Drug Use History: Marijuana ALLERGIES: NO KNOWN DRUG ALLERGIES CHEMICAL DEPENDENCY HISTORY: Patient reports that he uses a vape daily. He also was a daily user of marijuana. He denies any alcohol or illicit drug use. FAMILY PSYCHIATRIC/SUBSTANCE USE HISTORY: No reported family psychiatric or substance use history. SOCIAL HISTORY: Patient was born and raised in [place], [place]. He is single, never , and has no children. Currently lives with a roommate. He states that he has a 10th. Education. He reports no source of income. MENTAL STATUS EXAM: General Appearance: Patient appears to be stated age is alert, directable, and attempts to cooperate. Patient appears to have poor hygiene and grooming. Very poor dentition. Very thin build. Behavior: Patient is seated without any agitated behavior. Eye contact is appropriate. Patient is tearful. Speech: Patient's speech is fluent and nonpressured. Monotone. Soft in volume. Mood/Affect: Patient reports their mood is depressed, affect is congruent and constricted. Suicidality/Homicidality: Patient is currently denying any suicidal or homicidal ideation. Perceptions: Patient denies any visual hallucinations and denies any auditory hallucinations Though content/process: There is no evidence of any delusional thought content and thought process is linear and goal-directed. Memory and concentration: AOX3, grossly intact for the purposes of this session. Can spell "WORLD" backwards Judgment and insight: Fair STRENGTHS/WEAKNESSES: Strengths that the patient is resilient. Weakness is that the patient has numerous psychosocial stressors as well as poorly controlled diabetes INTELLECT: average IMPRESSIONS: Major depressive disorder, recurrent, severe Tobacco use disorder Cannabis use disorder PLAN: -Patient is admitted under voluntary status to MHU for stabilization of psychiatric symptoms and safety. Patient signed adult voluntary form and medication consent and is placed in patient's chart. -Medications : Will start patient on Prozac 20 mg by mouth daily for depression/anxiety -Zyprexa and Vistaril PRN for agitation/aggression -Patient was counselled on substance abuse and desired to cut back on use -Patient was informed of the risks, benefits and side effects of the medication and patient verbally consented to taking the medications. Patient signed med consent form and was placed in chart. -Internal Medicine consult to perform medical evaluation and physical. -NRT - nicotine patch -SW on board for discharge planning. Encourage patient to participate in groups to work on coping skills. 05/17/22 11:15 05/17/22 11:15
[2022-05-17 12:50] LABS: Glucose,Whole Blood 156 mg/dL (70-110)
[2022-05-17 15:13] LABS: Chol/HDL Ratio 2.73 Ratio; LDL Cholesterol,Calculated 51.7 mg/dL (0.0-131.0); VLDL Calculation 14.16 mg/dL (5.00-40.00)
[2022-05-17 17:31] LABS: Glucose,Whole Blood 153 mg/dL (70-110)
[2022-05-17 19:51] LABS: Glucose,Whole Blood 103 mg/dL (70-110)
[2022-05-17] MEDS: INSULIN DETEMIR (LEVEMIR) 100 UNIT/ML SYR SQ SCH (20:26)
[2022-05-17] MEDS: hydrOXYzine pamoate 25 MG CAP PO PRN (20:45)
[2022-05-18 07:36] LABS: Glucose,Whole Blood 59 mg/dL (70-110)
[2022-05-18] MEDS: INSULIN ASPART (NovoLOG) 100 UNIT/ML VIAL SQ SCH ×7 (07:50→20:32)
[2022-05-18] MEDS: NICOTINE 14MG/24HR PATCH TRANSDERM SCH (08:24)
[2022-05-18] MEDS: FLUoxetine HCL 10 MG CAP PO SCH (08:24)
[2022-05-18 08:32] LABS: Glucose,Whole Blood 149 mg/dL (70-110)
[2022-05-18 12:32] LABS: Glucose,Whole Blood 254 mg/dL (70-110)
--- NOTE | 2022-05-18 14:05 | P.PN ---
Subjective Progress Note Date: 05/18/22 Principal diagnosis: Major depressive disorder, recurrent, severe Tobacco use disorder Cannabis use disorder . -Medications : Prozac 20 mg by mouth daily for depression/anxiety . He has had one dose and tolerated it well. I reviewed that it take 2-6 weeks to work and must be taken daily. -Zyprexa and Vistaril PRN for agitation/aggression--has not been needed. -Patient was counselled on substance abuse and desired to cut back on use he seems to have a good attitude about this. -NRT - nicotine patch -SW on board for discharge planning. Encourage patient to participate in groups to work on coping skills. Objective: He is alert, cooperative, oriented, denies suicidal ideas, slept well, good appetite, no psychotic responses Assessment: stable Plan: observe, no change in meds. Objective - Vital Signs Vital signs: Vital Signs Temp 98.3 F 05/18/22 06:10 Pulse 71 05/18/22 06:10 Resp 18 05/18/22 06:10 BP 118/74 05/18/22 06:10 Pulse Ox 98 05/18/22 06:10 FiO2 - Labs CBC & Chem 7: 05/17/22 09:36 05/17/22 09:36 Labs: Abnormal Lab Results - Last 24 Hours (Table) 05/17/22 05/17/22 05/17/22 Range/Units 09:36 09:36 17:26 POC Glucose (mg/dL) 153 H (70-110) mg/dL Hemoglobin A1c 10.0 H (0.0-6.0) % HDL Cholesterol 38.10 L (40.00-60.00) mg/dL 05/18/22 05/18/22 05/18/22 Range/Units 07:33 08:23 12:30 POC Glucose (mg/dL) 59 L 149 H 254 H (70-110) mg/dL Hemoglobin A1c (0.0-6.0) % HDL Cholesterol (40.00-60.00) mg/dL
[2022-05-18 14:44] VITALS: BMI 14.7
[2022-05-18 18:00] LABS: Glucose,Whole Blood 148 mg/dL (70-110)
--- NOTE | 2022-05-18 18:04 | P.HPMEDMHU ---
History of Present Illness H&P Date: 05/18/22 Chief Complaint: Depression Patient is a 21-year-old male with a past medical history of diabetes mellitus type 1. He is admitted to the [facility] for depression. Patient states that he ran out of his insulin 3 months ago because he changed insurances. Patient states that he had been taking Lantus 36 units at bedtime and Humalog sliding scale. Patient states that he did not get any refills on his insulin because his qlikview developer left the practice. Patient was not aware that a primary care physician could refill his insulin. Patient also complaining of back pain and believes that he has scoliosis. Review of Systems 10 ROS reviewed and are negative except as noted in HPI Past Medical History Past Medical History: Diabetes Mellitus, Hypertension Additional Past Medical History / Comment(s): type 1 DM DKI in the past History of Any Multi-Drug Resistant Organisms: None Reported Past Surgical History: Adenoidectomy, Tonsillectomy Past Anesthesia/Blood Transfusion Reactions: No Reported Reaction Past Psychological History: Anxiety, Depression Smoking Status: Vaper Past Alcohol Use History: None Reported Past Drug Use History: Marijuana - Past Family History Mother Family Medical History: Diabetes Mellitus Additional Family Medical History / Comment(s): bipolar Father Family Medical History: Diabetes Mellitus, Hypertension Medications and Allergies Home Medications Medication Instructions Recorded Confirmed Type INSULIN ASPART (NovoLOG) [NovoLOG 10 unit SQ AC-TID #10 ml 05/18/22 Rx (formulary)] Insulin Detemir (Levemir) [Levemir] 25 unit SQ HS 30 Days #1 each 05/18/22 Rx Allergies Allergy/AdvReac Type Severity Reaction Status Date / Time No Known Allergies Allergy Verified 05/16/22 13:58 Physical Exam Osteopathic Statement: *. No significant issues noted on an osteopathic structural exam other than those noted in the History and Physical/Consult. Vitals: Vital Signs Temp Pulse Resp BP Pulse Ox 05/18/22 06:10 98.3 F 71 18 118/74 98 Intake and Output 05/18/22 05/18/22 05/18/22 06:59 14:59 22:59 Other: Weight 47.8 kg General: [Alert and oriented, well nourished, no acute distress]. Eye: [PERRL, EOMI, normal conjunctiva]. HENT: [Normocephalic, clear tympanic membranes, normal hearing, moist oral mucosa, no scleral icterus, no sinus tenderness]. Neck: [Supple, non-tender, no carotid bruits, no JVD, no lymphadenopathy]. Lungs: [Clear to auscultation and percussion, non-labored respiration]. Heart: [Normal rate, regular rhythm, no murmur, gallop or edema]. Abdomen: [Soft, non-tender, non-distended, normal bowel sounds, no masses]. Musculoskeletal: [Normal range of motion and strength, no tenderness or swelling]. Skin: [Skin is warm, dry and pink, no rashes or lesions]. Neurologic: [Awake, alert, and oriented X3, CN II-XII intact]. Psychiatric: [Cooperative, appropriate mood and affect]. Cranial Nerve Examination - Cranial Nerves Cranial Nerve II- Optic: Intact Cranial Nerve III- Oculomotor: Intact Cranial Nerve IV- Trochlear: Intact Cranial Nerve V- Trigeminal: Intact Cranial Nerve - Abducens: Intact Cranial Nerve VII- Facial: Intact Cranial Nerve VIII- Auditory: Intact Cranial Nerve IX- Glossopharyngeal: Intact Cranial Nerve X- Vagus: Intact Cranial Nerve XI- Accessory: Intact Cranial Nerve XII- Hypoglossal: Intact Results CBC & Chem 7: 05/17/22 09:36 05/17/22 09:36 Labs: Abnormal Lab Results - Last 24 Hours (Table) 05/18/22 05/18/22 05/18/22 Range/Units 07:33 08:23 12:30 POC Glucose (mg/dL) 59 L 149 H 254 H (70-110) mg/dL Assessment and Plan Assessment: Type 1 diabetes mellitus noncompliant with his medications Hemoglobin A1c is 10.0. Patient started on insulin regimen I sent his insulin to his pharmacy. On Friday please have manager social services check with his pharmacy to make sure that his insulins covered and if not increase contact [facility]. Back pain Patient instructed to follow with his PCP to further workup Depression Your psychiatry management Please do not hesitate to call us with any questions
[2022-05-18 19:52] LABS: Glucose,Whole Blood 181 mg/dL (70-110)
[2022-05-18] MEDS: INSULIN DETEMIR (LEVEMIR) 100 UNIT/ML SYR SQ SCH (20:32)
[2022-05-18] MEDS: DIPHENOX-ATROP 2.5-0.025 MG 1 EACH TAB PO PRN (20:32)
[2022-05-18] MEDS: hydrOXYzine pamoate 25 MG CAP PO PRN (20:36)
[2022-05-19 06:55] VITALS: RESP 16
[2022-05-19 07:48] LABS: Glucose,Whole Blood 45 mg/dL (70-110)
[2022-05-19] MEDS: INSULIN ASPART (NovoLOG) 100 UNIT/ML VIAL SQ SCH ×7 (08:01→20:00)
[2022-05-19] MEDS: FLUoxetine HCL 10 MG CAP PO SCH (08:02)
[2022-05-19 08:09] LABS: Glucose,Whole Blood 67 mg/dL (70-110)
[2022-05-19 09:20] LABS: Glucose,Whole Blood 200 mg/dL (70-110)
[2022-05-19 13:11] LABS: Glucose,Whole Blood 198 mg/dL (70-110)
--- NOTE | 2022-05-19 13:25 | P.PN ---
Subjective Progress Note Date: 05/19/22 Principal diagnosis: Major depressive disorder, recurrent, severe Tobacco use disorder Cannabis use disorder . -Medications : Prozac 30 mg by mouth daily for depression/anxiety . He istolerating it well. . -Zyprexa and Vistaril PRN for agitation/aggression--has not been needed. -Patient was counselled on substance abuse and desired to cut back on use he seems to have a good attitude about this. -NRT - nicotine patch -SW on board for discharge planning. Encourage patient to participate in groups to work on coping skills. His discharge plan is to stay with says brother was been a good influence on him was actually instrumental in getting him to come in here and he wants to get into [facility] and counseling. Objective: He is alert, cooperative, oriented, denies suicidal ideas, slept well, good appetite, no psychotic responses. He is aware that his A1c was 10 and he has now been started on insulin and that he needs to be motivated to take good care of them Assessment: stable Plan: observe, no change in meds. Objective - Vital Signs Vital signs: Vital Signs Temp 97.9 F 05/19/22 06:48 Pulse 87 05/19/22 06:48 Resp 16 05/19/22 06:48 BP 131/74 05/19/22 06:48 Pulse Ox 98 05/18/22 06:10 FiO2 Intake & Output 05/18/22 05/19/22 05/19/22 18:59 06:59 18:59 Weight 47.8 kg - Labs CBC & Chem 7: 05/17/22 09:36 05/17/22 09:36 Labs: Abnormal Lab Results - Last 24 Hours (Table) 05/18/22 05/18/22 05/19/22 Range/Units 17:59 19:51 07:43 POC Glucose (mg/dL) 148 H 181 H 45 L (70-110) mg/dL 05/19/22 05/19/22 05/19/22 Range/Units 08:06 09:19 13:09 POC Glucose (mg/dL) 67 L 200 H 198 H (70-110) mg/dL
[2022-05-19 15:47] LABS: Glucose,Whole Blood 64 mg/dL (70-110)
[2022-05-19 16:22] LABS: Glucose,Whole Blood 90 mg/dL (70-110)
[2022-05-19 17:55] LABS: Glucose,Whole Blood 133 mg/dL (70-110)
[2022-05-19 19:47] LABS: Glucose,Whole Blood 359 mg/dL (70-110)
[2022-05-19 19:47] LABS: Glucose,Whole Blood 367 mg/dL (70-110)
[2022-05-19] MEDS: hydrOXYzine pamoate 25 MG CAP PO PRN (19:48)
[2022-05-19] MEDS: DIPHENOX-ATROP 2.5-0.025 MG 1 EACH TAB PO PRN (19:48)
[2022-05-19] MEDS: INSULIN DETEMIR (LEVEMIR) 100 UNIT/ML SYR SQ SCH (20:00)
[2022-05-20] MEDS: DIPHENOX-ATROP 2.5-0.025 MG 1 EACH TAB PO PRN (01:42)
[2022-05-20 07:13] VITALS: BP 98/65; PULSE 129; TEMP 97.8
[2022-05-20] MEDS: INSULIN ASPART (NovoLOG) 100 UNIT/ML VIAL SQ SCH ×2 (08:45→08:46)
[2022-05-20] MEDS: FLUoxetine HCL 10 MG CAP PO SCH (08:47)
[2022-05-20 09:04] LABS: Glucose,Whole Blood 146 mg/dL (70-110)
--- NOTE | 2022-05-20 11:54 | P.DS ---
Providers Date of admission: 05/16/22 16:23 Expected date of discharge: 05/20/22 Attending physician: Tom Desouza MD Consults: 05/16/22 16:27 Consult Physician Routine Consulting Provider: Rusty Daley Consult Reason/Comments: Medical H&P Do you want consulting provider notified?: Yes Primary care physician: Stated None - Discharge Diagnosis(es) (1) Major depressive disorder Current Visit: Yes Status: Acute Priority: High (2) Tobacco use disorder Current Visit: Yes Status: Chronic Priority: Medium (3) Cannabis use disorder Current Visit: Yes Status: Chronic Priority: Medium (4) Type 1 diabetes mellitus, uncontrolled Current Visit: Yes Status: Acute Priority: Medium Hospital Course: Admission HPI: Patient is a single, unemployed, 21-year-old male with significant history of depression who presents to the hospital for worsening depression and suicidal ideation with attempt by overdose. Patient presented to the hospital on 05/16/2022, brought in by police under petition after the patient made threats to take a bottle of pills to kill himself. Upon evaluation by the EPS nurse, the patient was noted to be very tearful and depressed. The patient was subsequently transferred to the psychiatric unit and signed himself voluntarily into the unit. The patient reports significant stressors in his life. He states that he is mother at the beginning of this year after suffering from numerous medical problems. He has been in custody of his 2 brothers since the passing of his mother and was most recently informed that he has lost custody of them. He also reports that due to financial stressors, he is getting evicted. He states that he has been increasingly depressed over the past 9 months and has been con templating suicide since the beginning of this year. In regards to depressive symptoms, the patient does endorse decreased hygiene and grooming, decreased appetite, anhedonia, poor sleep, low energy, excessive guilt, hopelessness, helplessness, as well as suicidal ideation. He does report a previous attempt at suicide when he was 17 years of age by cutting his wrist. He is otherwise not reporting any other mood symptoms and denies any significant history of bipolar disorder. He reports no psychotic symptoms. He denies any auditory or visual hallucinations. He denies any paranoia or other delusions. The patient is a type I diabetic however states that he has not been in adherent with any of his insulin regimen over the past 3 months. He states that he has had DKA in the past. Patient states that he has been previously diagnosed depression and anxiety. The patient recalls bankruptcy prescribed Remeron and Zoloft. He does report one psychiatric admission at [facility] 4 years ago after attempting suicide by cutting his wrist. Patient denies any psychiatric outpatient follow-up. Hospital course: Upon admission to the unit patient was initially presenting as significantly dep ressed with poor hygiene and grooming, poor dentition, and an emaciated build. Furthermore, the patient reported suicidal ideation. Patient was however directable and agreeable to commence treatment. Patient got along well with other patients on the unit and followed unit protocol. Patient was compliant with the medications and denied any side effects throughout hospital course. Patient was started on Prozac for management of depression/anxiety. Patient spoke of his stressors and engaged in therapy both group and individual. Patient was also seen by medical team for history and physical exam. Throughout the course of the hospitalization patient gradually improved with regards to depression and suicidal ideation, and became future oriented with improved insight and judgment. On the day of discharge patient denied any suicidal or homicidal ideations intent or plan denied any auditory or visual hallucinations. Patient endorsed wanting to live for his health and family. The patient denied any access to guns or weapons. Patient denied any paranoia and did not endorse any delusions. Patient does have a significant history of substance abuse however was counseled on abstaining from all substances including alcohol and marijuana. Patient was also counseled on the medications and need for regular compliance and was encouraged to follow-up with their outpatient appointment for mental health and also for primary care. Prior to discharge a family meeting will be arranged by social service manager to answer any questions and ensure safety upon discharge. Patient is not reporting any medical issues or concerns at this time. He is denying any chest pain, shortness, headache, and she is using the restroom, or other problems. Mental status exam: General Appearance: Patient appears to be stated age is alert, pleasant, and cooperative. Patient is in no acute distress and has fair hygiene and grooming Behavior: Patient is calmly seated without any agitated behavior. Speech: Patient's speech is fluent and nonpressured. Mood/Affect: Patient reports their mood is "much better", affect is congruent and euthymic to bright. Suicidality/Homicidality: Patient denies having any suicidal or homicidal ideation intent or plan. Perceptions: Patient denies any auditory or visual hallucinations. Though content/process: There is no evidence of any delusional thought content and thought process is linear and goal-directed. Patient is future and goal oriented. Memory and concentration: AOX3, grossly intact for the purposes of this session. Can spell "WORLD" backwards correctly. Judgment and insight: Improved with guarded prognosis Impression: Major depressive disorder, recurrent, severe Tobacco use disorder Cannabis use disorder Diabetes mellitus type 1 Plan: -Continue with discharge today as patient has improved and stabilized psychiatrically and is not currently an imminent threat to himself and/or others. Patient will remain at chronically elevated risk due to numerous psychosocial factors including low income and recent in his family. -Continue medications: Prozac 30 mg by mouth daily for depression/anxiety Insulin was prescribed by primary care during this hospitalization -Patient was counseled on the need for medication compliance and appropriate follow-up at mental health and also primary care for medical issues. Patient verbalized understanding and agreed. -Social work to arrange for and conduct family meeting to ensure safety upon discharge and answer any questions/concerns. Social work also to arrange for patients follow up appointments with CM for psychiatric care along with follow up with primary care provider. -Patient counseled on abstaining from recreational drugs and marijuana and alcohol. Was informed/educated on the adverse effects on their physical and mental health. Patient verbally agreed and understood. -Patient was instructed to return to the hospital or seek immediate medical care if their psychiatric or medical symptoms do worsen or reoccur. -Psychoeducation and supportive therapy provided to patient. Risks and benefits of pharmacological treatment versus the risks and benefits of nontreatment weight and discussed. Informed consent discussion held. Common side effects of psychotropics discussed such as, but not limited to headache, GI disturbance, sexual dysfunction, movement disorders, sedation, and orthostatic hypotension. Life threatening and blackbox warnings of prescribed medications also discussed. Potential risks of operating a vehicle or heavy machinery discussed with patient at length. Advised on importance of compliance and a reliable and responsible manner. Patient advised to review FDA consumer labeling of all medications prior to taking. Patient verbalized understanding of potential risks, and agrees with current treatment plan. Patient advised to medically contact physician/emergency personnel if any acute changes in condition occur. Vital Signs Temp 97.8 F 05/20/22 07:04 Pulse 129 H 05/20/22 07:04 Resp 16 05/20/22 07:04 BP 98/65 05/20/22 07:04 Pulse Ox 98 05/18/22 06:10 FiO2 Laboratory Results WBC 8.0 k/uL (4.0-11.0) 05/17/22 09:36 RBC 5.41 m/uL (4.30-5.90) 05/17/22 09:36 Hgb 16.0 gm/dL (13.0-17.5) 05/17/22 09:36 Hct 49.3 % (39.0-53.0) 05/17/22 09:36 MCV 91.2 fL (80.0-100.0) 05/17/22 09:36 MCH 29.6 pg (25.0-35.0) 05/17/22 09:36 MCHC 32.4 g/dL (31.0-37.0) 05/17/22 09:36 RDW 11.8 % (11.5-15.5) 05/17/22 09:36 Plt Count 211 k/uL (150-450) 05/17/22 09:36 MPV 9.1 05/17/22 09:36 Neutrophils % 60 % 05/17/22 09:36 Lymphocytes % 31 % 05/17/22 09:36 Monocytes % 6 % 05/17/22 09:36 Eosinophils % 1 % 05/17/22 09:36 Basophils % 1 % 05/17/22 09:36 Neutrophils # 4.8 k/uL (1.3-7.7) 05/17/22 09:36 Lymphocytes # 2.5 k/uL (1.0-4.8) 05/17/22 09:36 Monocytes # 0.4 k/uL (0-1.0) 05/17/22 09:36 Eosinophils # 0.1 k/uL (0-0.7) 05/17/22 09:36 Basophils # 0.1 k/uL (0-0.2) 05/17/22 09:36 Sodium 139 mmol/L (137-145) 05/17/22 09:36 Potassium 3.7 mmol/L (3.5-5.1) 05/17/22 09:36 Chloride 99 mmol/L (98-107) 05/17/22 09:36 Carbon Dioxide 23 mmol/L (22-30) 05/17/22 09:36 Anion Gap 17 mmol/L 05/17/22 09:36 BUN 13 mg/dL (9-20) 05/17/22 09:36 Creatinine 0.56 mg/dL (0.66-1.25) L 05/17/22 09:36 Est GFR (CKD-EPI)AfAm >90 (>60 ml/min/1.73 sqM) 05/17/22 09:36 Est GFR (CKD-EPI)NonAf >90 (>60 ml/min/1.73 sqM) 05/17/22 09:36 Glucose 193 mg/dL (74-99) H 05/17/22 09:36 POC Glucose (mg/dL) 146 mg/dL (70-110) H 05/20/22 08:44 POC Glu Dipping Machine Operator ID Leonor Sanchez 05/20/22 08:[address] Glu mg/dL 239 05/17/22 09:36 Hemoglobin A1c 10.0 % (0.0-6.0) H 05/17/22 09:36 Calcium 9.5 mg/dL (8.4-10.2) 05/17/22 09:36 Total Bilirubin 0.7 mg/dL (0.2-1.3) 05/17/22 09:36 Conjugated Bilirubin 0.0 mg/dL (0.0-0.3) 05/17/22 09:36 Unconjugated Bilirubin 0.7 mg/dL (0.0-1.1) 05/17/22 09:36 Delta Bilirubin 0.0 mg/dL (0.0-0.2) 05/17/22 09:36 AST 17 U/L (17-59) 05/17/22 09:36 ALT 11 U/L (4-49) 05/17/22 09:36 Alkaline Phosphatase 106 U/L (38-126) 05/17/22 09:36 Total Protein 7.4 g/dL (6.3-8.2) 05/17/22 09:36 Albumin 5.0 g/dL (3.5-5.0) 05/17/22 09:36 Triglycerides 70.80 mg/dL (0.00-149.00) 05/17/22 09:36 Cholesterol 104.00 mg/dL (0.00-200.00) 05/17/22 09:36 LDL Cholesterol, Calc 51.7 mg/dL (0.0-131.0) 05/17/22 09:36 VLDL Cholesterol, Calc 14.16 mg/dL (5.00-40.00) 05/17/22 09:36 HDL Cholesterol 38.10 mg/dL (40.00-60.00) L 05/17/22 09:36 Cholesterol/HDL Ratio 2.73 Ratio 05/17/22 09:36 TSH 0.581 mIU/L (0.465-4.680) 05/17/22 09:36 Urine Opiates Screen Not Detected (NotDetected) 05/16/22 13:34 Ur Oxycodone Screen Not Detected (NotDetected) 05/16/22 13:34 Urine Methadone Screen Not Detected (NotDetected) 05/16/22 13:34 Ur Propoxyphene Screen Not Detected (NotDetected) 05/16/22 13:34 Ur Barbiturates Screen Not Detected (NotDetected) 05/16/22 13:34 U Tricyclic Antidepress Not Detected (NotDetected) 05/16/22 13:34 Ur Phencyclidine Scrn Not Detected (NotDetected) 05/16/22 13:34 Ur Amphetamines Screen Not Detected (NotDetected) 05/16/22 13:34 U Methamphetamines Scrn Not Detected (NotDetected) 05/16/22 13:34 U Benzodiazepines Scrn Not Detected (NotDetected) 05/16/22 13:34 Urine Cocaine Screen Not Detected (NotDetected) 05/16/22 13:34 U Marijuana (THC) Screen Detected (NotDetected) H 05/16/22 13:34 Coronavirus (PCR) Not Detected (Not Detectd) 05/16/22 15:03 Allergies Allergy/AdvReac Type Severity Reaction Status Date / Time No Known Allergies Allergy Verified 05/16/22 13:58 Patient Condition at Discharge: Stable Plan - Discharge Summary Discharge Rx Participant: Yes New Discharge Prescriptions: New Insulin Detemir (Levemir) [Levemir] 25 unit SQ HS 30 Days #1 each INSULIN ASPART (NovoLOG) [NovoLOG (formulary)] 10 unit SQ AC-TID #10 ml FLUoxetine HCL [PROzac] 30 mg PO DAILY 30 Days cap Discharge Medication List INSULIN ASPART (NovoLOG) [NovoLOG (formulary)] 10 unit SQ AC-TID #10 ml 05/18/22 [Rx] Insulin Detemir (Levemir) [Levemir] 25 unit SQ HS 30 Days #1 each 05/18/22 [Rx] FLUoxetine HCL [PROzac] 30 mg PO DAILY 30 Days cap 05/20/22 [Rx] Follow up Appointment(s)/Referral(s): [facility] [Outside] - 05/23/22 11:00 am (with cellophane worker) [facility] [NON-STAFF] - 1 Week Patient Instructions/Handouts: Depression (DC) Activity/Diet/Wound Care/Special Instructions: Avoid the use of street drugs and alcohol. Take all prescriptions as prescribed. When you are in need of refills on your medications, please contact your medical provider and/or outpatient psychiatrist to have this done. Please go to scheduled outpatient appointment for aftercare treatment. If symptoms return or become worse, call the crisis line at and/or go to the nearest emergency room for evaluation. Discharge Disposition: HOME SELF-CARE
== END 2022-05-20 12:55 | disposition home or self-care (01) | DRG 885 ==
LOC: EC 13:01 → 3MHU 16:23
PROVIDERS: ADMIT Psychiatry & Neurology Psychiatry; ATTEND Psychiatry & Neurology Psychiatry
DX: F33.2 Major depressive disorder, recurrent severe without psychotic features (principal); R45.851 Suicidal ideations; Z20.822 Contact with and (suspected) exposure to COVID-19; E10.65 Type 1 diabetes mellitus with hyperglycemia; I10 Essential (primary) hypertension; F12.10 Cannabis abuse, uncomplicated; F41.9 Anxiety disorder, unspecified; F17.210 Nicotine dependence, cigarettes, uncomplicated; Z79.899 Other long term (current) drug therapy; Z79.4 Long term (current) use of insulin; Z91.14 Patient's other noncompliance with medication regimen; Z71.51 Drug abuse counseling and surveillance of drug abuser
CPT/HCPCS: 36415; 80053; 80061; 80306; 82248; 83036; 84443; 85025; 87635; 99285

== ENCOUNTER 2022-07-23 15:36 | Emergency (ER) | payer OTHER ==
[2022-07-23 16:34] VITALS: BP 107/74; PULSE 117; RESP 20; TEMP 98
[2022-07-23 16:38] LABS: Glucose,Whole Blood 164 mg/dL (70-110)
== END 2022-07-23 20:47 | disposition left against medical advice (07) ==
LOC: EC 15:36
DX: Z53.21 Procedure and treatment not carried out due to patient leaving prior to being seen by health care provider (principal)
CPT/HCPCS: 36415; 99499